=== PATIENT | female | born 1970 | race Caucasian/White ===

== ENCOUNTER 2024-02-25 08:24 | Outpatient (AMB) | payer MEDICAID, SELFPAY ==
--- NOTE | 2024-02-25 08:47 | ORTHONT_ITS ---
Vital signs 02/25/24 08:48 Height 1.7 m Height Method Stated Weight 102.54 kg Weight Measurement Method Standing Scale BMI 35.4 BP 166/96 H Blood Pressure Source Automatic Cuff Blood Pressure Location Right Upper Arm Position Sitting Respiration 18 Pulse 66 Pulse Source Monitor Temp 97.3 F Temp Source Temporal Artery Scan Pulse Oximetry (%) 97 Oxygen Delivery Method Room Air Med/Allergies Allergies & Medications Allergies codeine Allergy (Severe, Verified 02/25/24 08:48) Palpitations hydrocortisone Allergy (Severe, Verified 02/25/24 08:48) Headache prednisone Allergy (Severe, Verified 02/25/24 08:48) Swelling of Lip/Tongue/Throat sulfamethoxazole Allergy (Severe, Verified 02/25/24 08:48) Rash trimethoprim Allergy (Severe, Verified 02/25/24 08:48) Rash Medication Reconciliation baclofen 10 mg tablet 10 mg PO BID 03/20/21 [History Confirmed 02/25/24] cetirizine 10 mg tablet 10 mg PO QDAY 03/20/21 [History Confirmed 02/25/24] lisinopril 40 mg tablet 40 mg PO QDAY 03/20/21 [History Confirmed 02/25/24] omeprazole 40 mg capsule,delayed release 40 mg PO QDAY 03/20/21 [History Confirmed 02/25/24] ondansetron 8 mg disintegrating tablet 8 mg PO Q8H PRN nausea and vomiting #14 tabs 03/20/21 [Rx Confirmed 02/25/24] propranolol 10 mg tablet 10 mg PO QDAY 03/20/21 [History Confirmed 02/25/24] sertraline 25 mg tablet 25 mg PO QDAY 03/20/21 [History Confirmed 02/25/24] trazodone 100 mg tablet 100 mg PO QDAY 03/20/21 [History Confirmed 02/25/24] ibuprofen 800 mg tablet 800 mg PO TID PRN pain #30 tabs 08/03/21 [Rx Confirmed 02/25/24] Subjective Visit Visit for: new patient and hip (BILATERAL) Immunization / Flu Flu Vaccine in the Last 12 Months: No Flu Vaccine Exclusion Criteria: No Exclusion Criteria History of Present Illness Chief complaint: BILATERAL HIP PAIN Aakash is a pleasant 53-year-old female with a history of a right hip replacement done with Dr. Melecio Newman. The incision was on the side of her hip. This occurred approximately 1 year ago. She is having persistent left hip pain recently. The pain is primarily in the groin but is in the back and shoots down her thigh as well. She takes Celebrex as well as gabapentin. 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 Exam Exam Patient is in no acute distress and is cooperative with the examination today. Patient has a normal mood and affect. Breathing is nonlabored. In no respiratory distress. Bilateral extremities were evaluated and demonstrates sensation intact to light touch. Palpable pedal pulses are present. No significant edema is present. Right hip demonstrates no pain with logroll. Incisions clean dry intact. Left hip is tender to palpation. There is pain with logroll as well. Internal rotation to 20 degrees and is pain limited Assessment and Plan Problem List (1) Status post right hip replacement: Status: Acute Plan: Patient is a pleasant 53-year-old female with likely left hip arthritis. I would like to see her back after her x-rays are done. We will likely do a summer gnostic injection of her left hip with cortisone as she has some back pain it would be very helpful to differentiate her back and hip pain. I will see her back for x-ray results (2) Arthritis of left hip: Status: Acute Office Procedures GNS Level of Care Nursing/Assessment Patient Status: Initial/New Patient Nursing Assessment/Reassesment: Medication Reconciliation, Update PMH in EMR and Vital Signs Coordination of Care: Complex Care and Chronic Disease 1-5, Consent,records obtained, informed consent, Education Simp Pt/Fam, 1 Ins Authorization, Lab and Imaging orders, Results/Orders obtained and Staff clarify orders New Patient Charge New Patient Point Assignment: 1119 New Patient Point Charge: HELICOPTER SPECIALIST Level 3 ([id number]) Past Medical History Past Medical History Have you ever been diagnosed with any of the following: Neurological Problems Seizures: No Cardiology Problems Hypercholesterolemia: No Congestive Heart Failure: No Hypertension: Yes Respiratory Problems Chronic Obstructive Pulmonary Disease (COPD): No Asthma: No Smoking: No Smoking Exposure: No Genital/Urinary Problems Renal Disease: No Kidney Stones: Yes Reproductive Problems Breast Cancer: No Previous Pregnancies: Yes Endocrine Problems Diabetes Mellitus Type 1: No Diabetes Mellitus Type 2: No Blood Problems Sickle Cell Disease: No Psychologic Problems Depression: Yes Anxiety: Yes Other Problems Blood Transfusions: No Blood Transfusion Reaction: No Anesthesia Reactions: No Organ Transplant: No Chicken Pox: Yes
[2024-02-25 08:48] VITALS: BP 166/96; PULSE 66; RESP 18; TEMP 36.3; O2SAT 97; BMI 35.4
== END 2024-02-25 09:08 | disposition home or self-care (01) ==
LOC: HODSRG 08:24
PROVIDERS: PCP Family Medicine; Referring Provider Family Medicine; Supervising Provider Orthopaedic Surgery Adult Reconstructive Orthopaedic Surgery; Visit Provider Orthopaedic Surgery Adult Reconstructive Orthopaedic Surgery
DX: Z96.641 Presence of right artificial hip joint (principal); M16.12 Unilateral primary osteoarthritis, left hip; I10 Essential (primary) hypertension
CPT/HCPCS: 99203; G0463

== ENCOUNTER 2024-04-07 08:08 | Outpatient (AMB) | payer MEDICAID, SELFPAY ==
[2024-04-07 08:40] VITALS: BP 142/88; PULSE 99; RESP 18; TEMP 36.6; O2SAT 99; BMI 35.1
--- NOTE | 2024-04-07 08:40 | ORTHONT_ITS ---
Vital signs 04/07/24 08:40 Height 1.7 m Height Method Stated Weight 101.633 kg Weight Measurement Method Standing Scale BMI 35.1 BP 142/88 H Blood Pressure Source Automatic Cuff Blood Pressure Location Left Upper Arm Position Sitting Respiration 18 Pulse 99 Pulse Source Monitor Temp 97.8 F Temp Source Oral Pulse Oximetry (%) 99 Oxygen Delivery Method Room Air Med/Allergies Allergies & Medications Allergies codeine Allergy (Severe, Verified 02/25/24 08:48) Palpitations hydrocortisone Allergy (Severe, Verified 02/25/24 08:48) Headache prednisone Allergy (Severe, Verified 02/25/24 08:48) Swelling of Lip/Tongue/Throat sulfamethoxazole Allergy (Severe, Verified 02/25/24 08:48) Rash trimethoprim Allergy (Severe, Verified 02/25/24 08:48) Rash Subjective Visit Visit for: follow up visit Immunization / Flu Flu Vaccine in the Last 12 Months: No Flu Vaccine Exclusion Criteria: No Exclusion Criteria History of Present Illness Chief complaint: PT HERE IN OFFICE HAS BILATERAL HIP PAIN Aakash is a pleasant 53-year-old female with a history of a right hip replacement done with Dr. Melecio Newman. The incision was on the side of her hip. This occurred approximately 1 year ago. She is having persistent left hip pain recently. The pain is primarily in the groin but is in the back and shoots down her thigh as well. She takes Celebrex as well as gabapentin. 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 Exam Exam Patient is in no acute distress and is cooperative with the examination today. Patient has a normal mood and affect. Breathing is nonlabored. In no respiratory distress. Bilateral extremities were evaluated and demonstrates sensation intact to light touch. Palpable pedal pulses are present. No significant edema is present. Right hip demonstrates no pain with logroll. Incisions clean dry intact. Left hip is tender to palpation. There is pain with logroll as well. Internal rotation to 20 degrees and is pain limited X-rays of the right hip demonstrate a right total hip replacement in a lying position. The left hip has moderate arthritis And joint space narrowing. Assessment and Plan Problem List (1) Status post right hip replacement: Status: Acute Plan: Patient is a pleasant 53-year-old female with Moderate left hip arthritis. She has significant back pain that radiates down her toes as well. We will start with a left hip cortisone injection for both diagnostic and therapeutic purposes. I would like to know how much of this pain is coming from her hip versus her back. We will see her back in approximately 6 weeks after her injection (2) Arthritis of left hip: Status: Acute Office Procedures GNS Level of Care Nursing/Assessment Patient Status: Established Patient Nursing Assessment/Reassesment: BP Monitoring, Medication Reconciliation, Update PMH in EMR and Vital Signs Coordination of Care: Complex Care and Chronic Disease 1-5, Consent,records obtained, informed consent, Lab and Imaging orders and Results/Orders obtained Established Patient Charge Established Patient Point Assignment: 95 Established Patient Point Charge: EP Level 3 (80-115) Past Medical History Past Medical History Have you ever been diagnosed with any of the following: Neurological Problems Seizures: No Cardiology Problems Hypercholesterolemia: No Congestive Heart Failure: No Hypertension: Yes Respiratory Problems Chronic Obstructive Pulmonary Disease (COPD): No Asthma: No Smoking: No Smoking Exposure: No Genital/Urinary Problems Renal Disease: No Kidney Stones: Yes Reproductive Problems Breast Cancer: No Previous Pregnancies: Yes Endocrine Problems Diabetes Mellitus Type 1: No Diabetes Mellitus Type 2: No Blood Problems Sickle Cell Disease: No Psychologic Problems Depression: Yes Anxiety: Yes Other Problems Blood Transfusions: No Blood Transfusion Reaction: No Anesthesia Reactions: No Organ Transplant: No Chicken Pox: Yes
== END 2024-04-07 09:32 | disposition home or self-care (01) ==
LOC: HODSRG 08:08
PROVIDERS: PCP Family Medicine; Referring Provider Family Medicine; Supervising Provider Orthopaedic Surgery Adult Reconstructive Orthopaedic Surgery; Visit Provider Orthopaedic Surgery Adult Reconstructive Orthopaedic Surgery
DX: Z96.641 Presence of right artificial hip joint (principal); M16.12 Unilateral primary osteoarthritis, left hip; I10 Essential (primary) hypertension
CPT/HCPCS: 99213; G0463

== ENCOUNTER → 2024-05-06 | Outpatient (CLI) | payer MEDICAID, SELFPAY ==
--- NOTE | 2024-05-06 14:00 | XR_ITS ---
Examination: Steroid injection left hip joint with imaging guidance Fluoroscopy AP left hip single view INDICATIONS: Left hip pain osteoarthritis one month. Exam date and time: May 06, 2024 1322 hours Informed consent provided. Technique: A timeout was completed verifying correct patient, procedure, site, positioning. The patient was placed in supine position appropriate for the steroid injection The patient's site was prepped and draped in sterile fashion 5 cc 1% lidocaine administered locally for anesthesia. Sterile drape applied, maximum barrier sterile technique. Utilizing fluoroscopic guidance, 23-gauge needle placed in the left hip joint 1 cc Kenalog 40 in 5 cc 0.25% Marcaine introduced into the left hip joint The patient was in satisfactory and stable condition on completion of the procedure Attending radiologist was present for the entire procedure Estimated blood loss 0 cc. Impression: Successful steroid injection left hip joint with imaging guidance Fluoroscopy 0.1 minute radiation dose 2.08 milligray 1 spot fluoroscopic left hip film .
== END | disposition home or self-care (01) ==
LOC: SIRX 13:02
PROVIDERS: PCP Physician Assistant; Referring Provider Orthopaedic Surgery Adult Reconstructive Orthopaedic Surgery; Visit Provider Orthopaedic Surgery Adult Reconstructive Orthopaedic Surgery
DX: M16.12 Unilateral primary osteoarthritis, left hip (principal)
CPT/HCPCS: 20610; 77002

== ENCOUNTER 2024-07-07 08:02 | Outpatient (AMB) | payer MEDICAID, SELFPAY ==
[2024-07-07 08:11] VITALS: BP 140/91; PULSE 68; RESP 19; TEMP 36.3; O2SAT 98; BMI 34.7
--- NOTE | 2024-07-07 08:11 | PD.ORTHCLVIS ---
Vital signs 07/07/24 08:11 Height 1.7 m Height Method Stated Weight 100.272 kg Weight Measurement Method Standing Scale BMI 34.7 BP 140/91 H Blood Pressure Source Automatic Cuff Blood Pressure Location Left Upper Arm Position Sitting Respiration 19 Pulse 68 Pulse Source Monitor Temp 97.3 F Temp Source Temporal Artery Scan Pulse Oximetry (%) 98 Oxygen Delivery Method Room Air Med/Allergies Allergies & Medications Allergies codeine Allergy (Severe, Verified 07/07/24 08:12) Palpitations hydrocortisone Allergy (Severe, Verified 07/07/24 08:12) Headache prednisone Allergy (Severe, Verified 07/07/24 08:12) Swelling of Lip/Tongue/Throat sulfamethoxazole Allergy (Severe, Verified 07/07/24 08:12) Rash trimethoprim Allergy (Severe, Verified 07/07/24 08:12) Rash Medication Reconciliation baclofen 10 mg tablet 10 mg PO BID 03/20/21 [History Confirmed 07/07/24] cetirizine 10 mg tablet 10 mg PO QDAY 03/20/21 [History Confirmed 07/07/24] lisinopril 40 mg tablet 40 mg PO QDAY 03/20/21 [History Confirmed 07/07/24] omeprazole 40 mg capsule,delayed release 40 mg PO QDAY 03/20/21 [History Confirmed 07/07/24] ondansetron 8 mg disintegrating tablet 8 mg PO Q8H PRN nausea and vomiting #14 tabs 03/20/21 [Rx Confirmed 07/07/24] propranolol 10 mg tablet 10 mg PO QDAY 03/20/21 [History Confirmed 07/07/24] sertraline 25 mg tablet 25 mg PO QDAY 03/20/21 [History Confirmed 07/07/24] trazodone 100 mg tablet 100 mg PO QDAY 03/20/21 [History Confirmed 07/07/24] ibuprofen 800 mg tablet 800 mg PO TID PRN pain #30 tabs 08/03/21 [Rx Confirmed 07/07/24] Exam Exam Patient is in no acute distress and is cooperative with the examination today. Patient has a normal mood and affect. Breathing is nonlabored. In no respiratory distress. Bilateral extremities were evaluated and demonstrates sensation intact to light touch. Palpable pedal pulses are present. No significant edema is present. Right hip demonstrates no pain with logroll. Incisions clean dry intact. Left hip is tender to palpation. There is pain with logroll as well. Internal rotation to 20 degrees and is pain limited X-rays of the right hip demonstrate a right total hip replacement in a lying position. The left hip has moderate arthritis And joint space narrowing. Assessment and Plan Problem List (1) Status post right hip replacement: Status: Acute Plan: Patient is a pleasant 53-year-old female with Moderate left hip arthritis. She has significant back pain that radiates down her toes as well. She did receive significant relief with a cortisone injection. The pain has reoccurred. We talked about total hip replacement in great detail today. She is currently on the fence whether she wants a total hip replacement or not. We will continue with NSAIDs for now. She will continue to try to lose weight. (2) Arthritis of left hip: Status: Acute Office Procedures GNS Level of Care Nursing/Assessment Patient Status: Established Patient Nursing Assessment/Reassesment: Medication Reconciliation, Update PMH in EMR and Vital Signs Coordination of Care: Complex Care and Chronic Disease 1-5, Education Complex Pt/Fam, Consent,records obtained, informed consent, Results/Orders obtained and Staff clarify orders Established Patient Charge Established Patient Point Assignment: 95 Established Patient Point Charge: EP Level 3 (80-115) MA Intake Visit Data Collection New Patient or Established: Established Patient (seen at [facility] within 3 years) Reason for Visit:: 3MTH F/U HIP INJ Seen by Clinical Staff ONLY (RN/MA): No 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 Operation 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: No PCP or OBGYN visit in last 3 months: Yes Hx Now: No Do You Feel Safe at Home: Yes Authorities Contacted: N/A Questionairres Past Medical History Past Medical History Have you ever been diagnosed with any of the following: Neurological Problems Seizures: No Cardiology Problems Hypercholesterolemia: No Congestive Heart Failure: No Hypertension: Yes Respiratory Problems Chronic Obstructive Pulmonary Disease (COPD): No Asthma: No Smoking: No Smoking Exposure: No Genital/Urinary Problems Renal Disease: No Kidney Stones: Yes Reproductive Problems Breast Cancer: No Previous Pregnancies: Yes Endocrine Problems Diabetes Mellitus Type 1: No Diabetes Mellitus Type 2: No Blood Problems Sickle Cell Disease: No Psychologic Problems Depression: Yes Anxiety: Yes Other Problems Blood Transfusions: No Blood Transfusion Reaction: No Anesthesia Reactions: No Organ Transplant: No Chicken Pox: Yes Subjective Visit Visit for: follow up visit and hip Immunization / Flu Flu Vaccine in the Last 12 Months: No Flu Vaccine Exclusion Criteria: No Exclusion Criteria History of Present Illness Chief complaint: left hip pain Aakash is a pleasant 53-year-old female with left hip arthritis. She had a right hip replaced. She had a hip injection and reports that it did help for 3 weeks. She is currently on the fence whether she wants a hip replacement at this point. She takes Celebrex. Pain Pain level (0-10): 6 Pain duration: CONSTANT Pain location: inside (medial) and outside (lateral) Pain quality: dull Pain timing: increases with activity Ambulatory data Ambulatory device: none Treatments Improvement with previous injections: No Improvement with PT: No Improvement with NSAIDS: no Review of Systems Review of Systems: All systems negative unless otherwise noted in HPI.
== END 2024-07-07 08:31 | disposition home or self-care (01) ==
LOC: HODSRG 08:02
PROVIDERS: PCP Physician Assistant; Referring Provider Physician Assistant; Supervising Provider Orthopaedic Surgery Adult Reconstructive Orthopaedic Surgery; Visit Provider Orthopaedic Surgery Adult Reconstructive Orthopaedic Surgery
DX: M16.12 Unilateral primary osteoarthritis, left hip (principal); Z96.641 Presence of right artificial hip joint; I10 Essential (primary) hypertension
CPT/HCPCS: 99213; G0463

== ENCOUNTER 2024-09-29 10:54 | Outpatient (AMB) | payer MEDICAID, SELFPAY ==
[2024-09-29 11:16] VITALS: BP 147/83; PULSE 74; RESP 18; TEMP 36.4; O2SAT 95; BMI 32.6
--- NOTE | 2024-09-29 11:16 | ORTHONT_ITS ---
Vital signs 09/29/24 11:16 Height 1.7 m Height Method Stated Weight 94.376 kg Weight Measurement Method Standing Scale BMI 32.6 BP 147/83 H Blood Pressure Source Automatic Cuff Blood Pressure Location Left Upper Arm Position Sitting Respiration 18 Pulse 74 Pulse Source Monitor Temp 97.6 F Temp Source Temporal Artery Scan Pulse Oximetry (%) 95 Oxygen Delivery Method Room Air Med/Allergies Allergies & Medications Allergies codeine Allergy (Severe, Verified 09/29/24 11:17) Palpitations hydrocortisone Allergy (Severe, Verified 09/29/24 11:17) Headache prednisone Allergy (Severe, Verified 09/29/24 11:17) Swelling of Lip/Tongue/Throat sulfamethoxazole Allergy (Severe, Verified 09/29/24 11:17) Rash trimethoprim Allergy (Severe, Verified 09/29/24 11:17) Rash Medication Reconciliation baclofen 10 mg tablet 10 mg PO BID 03/20/21 [History Confirmed 09/29/24] cetirizine 10 mg tablet 10 mg PO QDAY 03/20/21 [History Confirmed 09/29/24] lisinopril 40 mg tablet 40 mg PO QDAY 03/20/21 [History Confirmed 09/29/24] omeprazole 40 mg capsule,delayed release 40 mg PO QDAY 03/20/21 [History Confirmed 09/29/24] ondansetron 8 mg disintegrating tablet 8 mg PO Q8H PRN nausea and vomiting #14 tabs 03/20/21 [Rx Confirmed 09/29/24] propranolol 10 mg tablet 10 mg PO QDAY 03/20/21 [History Confirmed 09/29/24] sertraline 25 mg tablet 25 mg PO QDAY 03/20/21 [History Confirmed 09/29/24] trazodone 100 mg tablet 100 mg PO QDAY 03/20/21 [History Confirmed 09/29/24] ibuprofen 800 mg tablet 800 mg PO TID PRN pain #30 tabs 08/03/21 [Rx Confirmed 09/29/24] Exam Exam Patient is in no acute distress and is cooperative with the examination today. Patient has a normal mood and affect. Breathing is nonlabored. In no respiratory distress. Bilateral extremities were evaluated and demonstrates sensation intact to light touch. Palpable pedal pulses are present. No significant edema is present. Right hip demonstrates no pain with logroll. Incisions clean dry intact. Left hip is tender to palpation. There is pain with logroll as well. Internal rotation to 20 degrees and is pain limited X-rays of the right hip demonstrate a right total hip replacement in a lying position. The left hip has moderate arthritis And joint space narrowing. Assessment and Plan Problem List (1) Status post right hip replacement: Status: Acute Plan: Patient is a pleasant 53-year-old female with Moderate left hip arthritis. She has significant back pain that radiates down her toes as well. She did receive significant relief with a cortisone injection. The pain has reoccurred. We talked about total hip replacement in great detail today. She is currently on the fence whether she wants a total hip replacement or not. We will continue with NSAIDs for now. She will continue to try to lose weight. (2) Arthritis of left hip: Status: Acute Office Procedures GNS Level of Care Nursing/Assessment Patient Status: Established Patient Nursing Assessment/Reassesment: Medication Reconciliation, Update PMH in EMR and Vital Signs Coordination of Care: Complex Care and Chronic Disease 1-5, Education Complex Pt/Fam, Consent,records obtained, informed consent, Results/Orders obtained and Staff clarify orders Established Patient Charge Established Patient Point Assignment: 95 MA Intake Visit Data Collection New Patient or Established: Established Patient (seen at [facility] within 3 years) Reason for Visit:: LEFT HIP PAIN FOLLOW UP Seen by Clinical Staff ONLY (RN/MA): No PCP or OBGYN visit in last 3 months: Yes Hx Now: No Do You Feel Safe at Home: Yes Authorities Contacted: N/A Questionairres Past Medical History Past Medical History Have you ever been diagnosed with any of the following: Neurological Problems Seizures: No Cardiology Problems Hypercholesterolemia: No Congestive Heart Failure: No Hypertension: Yes Respiratory Problems Chronic Obstructive Pulmonary Disease (COPD): No Asthma: No Smoking: No Smoking Exposure: No Genital/Urinary Problems Renal Disease: No Kidney Stones: Yes Reproductive Problems Breast Cancer: No Previous Pregnancies: Yes Endocrine Problems Diabetes Mellitus Type 1: No Diabetes Mellitus Type 2: No Blood Problems Sickle Cell Disease: No Psychologic Problems Depression: Yes Anxiety: Yes Other Problems Blood Transfusions: No Blood Transfusion Reaction: No Anesthesia Reactions: No Organ Transplant: No Chicken Pox: Yes Subjective Visit Visit for: follow up visit and hip Immunization / Flu Flu Vaccine in the Last 12 Months: No Flu Vaccine Exclusion Criteria: No Exclusion Criteria History of Present Illness Chief complaint: left hip pain Aakash is a pleasant 53-year-old female with left hip arthritis. She had a right hip replaced. She had a hip injection and reports that it did help for 3 weeks. She is currently on the fence whether she wants a hip replacement at this point. She takes Celebrex. The last hip injection did not last for a long period of time. Pain Pain level (0-10): 5 Pain duration: COMES AND GOES Pain location: outside (lateral) Pain quality: dull and aching Pain timing: increases with activity Associated signs & symptoms: none Ambulatory data Ambulatory device: none Treatments Improvement with previous injections: No Improvement with PT: No Improvement with NSAIDS: no Review of Systems Review of Systems: All systems negative unless otherwise noted in HPI.
== END 2024-09-29 11:25 | disposition home or self-care (01) ==
LOC: HODSRG 10:54
PROVIDERS: PCP Physician Assistant; Referring Provider Physician Assistant; Supervising Provider Orthopaedic Surgery Adult Reconstructive Orthopaedic Surgery; Visit Provider Orthopaedic Surgery Adult Reconstructive Orthopaedic Surgery
DX: Z96.641 Presence of right artificial hip joint (principal); M16.12 Unilateral primary osteoarthritis, left hip; M54.9 Dorsalgia, unspecified
CPT/HCPCS: 99213; G0463

== ENCOUNTER 2024-10-27 18:31 | Inpatient (IN) | payer MEDICAID, SELFPAY ==
[2024-10-27 18:32] VITALS: BMI 32.2
--- NOTE | 2024-10-27 18:36 | EKG_ITS ---
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
[2024-10-27 18:52] VITALS: BP 125/82; PULSE 138; RESP 18; TEMP 36.9; O2SAT 99
--- NOTE | 2024-10-27 19:00 | XR_ITS ---
Examination: AP chest single view TECHNIQUE: Portable AP sitting chest single view Date and time: October 27, 2024 1906 hours Comparison July 18, 2018 INDICATIONS: Tachycardia today. FINDINGS: Normal heart size. Lungs are clear. The osseous structures are intact. IMPRESSION: No active disease
[2024-10-27] MEDS: SODIUM CHLORIDE 0.9% 1000 ML 1,000 ML 999 ML IV (19:09)
[2024-10-27 19:10] VITALS: PULSE 146
--- NOTE | 2024-10-27 19:20 | PD.EDARRY ---
ED Arrhythmia Palp. RME/HPI General Chief Complaint: Arrhythmia/Palpitations Stated Complaint: PULSE HIGH ALL DAY (156) Time Seen by Provider: 10/27/24 18:59 Source: patient Arrival date/time: 10/27/24 18:31 Mode of arrival: EMS Limitations: no limitations RME / HPI RME / HPI narrative: 54-year-old female with past medical history of hypertension, stopped taking meds 3 months ago after quitting smoking who presented to the ED due to palpitations and shortness of breath. Patient checked her heart rate in the morning and found it to be very elevated but ignored it and went to work until 5:30 PM checked it again and found it to be elevated in the 140s 150s decided to come to the ER. No fevers, abdominal pain, syncope, seizure, diarrhea, nausea or vomiting, chest pain, recent travel, no longer smoker, no family history of pulmonary embolism MD complaint: rapid heart beat and palpitations Related Data Home Medications ?Medication ?Instructions ?Recorded ?Confirmed baclofen 10 mg tablet 10 mg PO BID 03/20/21 09/29/24 cetirizine 10 mg tablet 10 mg PO QDAY 03/20/21 09/29/24 lisinopril 40 mg tablet 40 mg PO QDAY 03/20/21 09/29/24 omeprazole 40 mg capsule,delayed 40 mg PO QDAY 03/20/21 09/29/24 release propranolol 10 mg tablet 10 mg PO QDAY 03/20/21 09/29/24 sertraline 25 mg tablet 25 mg PO QDAY 03/20/21 09/29/24 trazodone 100 mg tablet 100 mg PO QDAY 03/20/21 09/29/24 Previous Rx's ?Medication ?Instructions ?Recorded ondansetron 8 mg disintegrating 8 mg PO Q8H PRN nausea and 03/20/21 tablet vomiting #14 tabs ibuprofen 800 mg tablet 800 mg PO TID PRN pain #30 tabs 08/03/21 Allergies Allergy/AdvReac Type Severity Reaction Status Date / Time codeine Allergy Severe Palpitation Verified 10/27/24 18:34 s hydrocortisone Allergy Severe Headache Verified 10/27/24 18:34 prednisone Allergy Severe Swelling Verified 10/27/24 18:34 of Lip/Tongue/Throat sulfamethoxazole Allergy Severe Rash Verified 10/27/24 18:34 trimethoprim Allergy Severe Rash Verified 10/27/24 18:34 Review of Systems Review of Systems Systems Reviewed: All systems reviewed, normal except as documented Past Medical History Past Medical History NEUROLOGIC: Negative Neurological Disorders or Seizures CARDIAC: Positive Hypertension; Negative Cardiac Disorders, Hypercholesterolemia or Congestive Heart Failure RESPIRATORY: Negative Chronic Obstructive Pulmonary Disease (COPD), Asthma, Smoking or Smoking Exposure GASTROINTESTINAL: Negative Gastrointestinal Disorders GENITOURINARY: Positive Genitourinary Disorders and Kidney Stones; Negative Renal Disease REPRODUCTIVE: Positive Previous Pregnancies; Negative Breast Cancer MUSCULOSKELETAL: Negative Musculoskeletal Disorders ENDOCRINE: Negative Endocrine Disorders, Diabetes Mellitus Type 1 or Diabetes Mellitus Type 2 HEMATOLOGIC: Negative Blood Disorders or Sickle Cell Disease PSYCHO/SOCIAL: Positive Depression and Anxiety OTHER HISTORY: Positive Chicken Pox; Negative Autoimmune Disease, Blood Transfusions, Blood Transfusion Reaction, Anesthesia Reactions, Organ Transplant or Breast Cancer Family History FAMILY HISTORY: Positive Family Cardiac Disorders, Family Cancer and Family Surgery; Negative Family Anesthesia Reaction Surgical History SURGICAL: Negative Endocrine Surgery, Ear Surgery, Abdominal Surgery, Nephrectomy, Joint Replacement, Neurologic Surgery, Brain Shunt, Mastectomy or Organ Transplant Social History SMOKING STATUS: Never smoker ED Exam Narrative Physical exam: GENERAL: NAD, AAOx3 HEENT: Moist mucosa. Eyes open, symmetrical, & clear CARDIO: Tachycardia, heart irregularly irregular, no obvious murmurs PULM: No noted coughing/dyspnea CTA B/L, no R/W/R GI: Abdomen soft, nondistended, no pain on palpation. BSx4 SKIN/MSK/EXT: No wounds/rashes/edema/amputations, no pain on palpation. Pedal pulses present B/L NEURO: AAOx3, no focal neuro deficits, able to move all 4 extremities General Limitations: Present no limitations Course Course Course Narrative: 1848 EKG taken, shows atrial flutter 1900 1L NS bolus administered 1950 Diltiazem 15mg IVx1 2008 On re-evaluation patients heart rate improved from the 140s to 75bpm 2047 Patient continues to be in atrial flutter, Spoke to Dry Cle[employer] Supervisor Dr. Gonsalez, who evaluated the patient in the emergency department at the bedside ,who recommends Diltiazem drip and admission. 2100 Spoke to IM team will admit the patient. Quality Measures none Orders Category Date Time Status EKG (ED ONLY) *Do not use* NOW Care 10/27/24 18:36 Completed CXRP [XR chest 1V portable] Stat Exams 10/27/24 19:00 Taken EKG (ED Only) Stat Exams 10/27/24 18:36 Draft CBC Stat Lab 10/27/24 19:01 Ordered CMP [Comprehensive Metabolic Panel] Stat Lab 10/27/24 19:01 Ordered Drug Screen,Urine Stat Lab 10/27/24 19:01 Ordered HCG,Qualitative Serum Stat Lab 10/27/24 19:01 Ordered Mag [Magnesium] Stat Lab 10/27/24 19:01 Ordered Urinalysis Stat Lab 10/27/24 19:02 Ordered Diltiazem Inj [Cardizem Inj] Med 10/27/24 19:15 Once 15 mg IV X1 ONE Sodium Chloride 0.9% 1000 ml [Ns] 1,000 ml Med 10/27/24 19:01 Active IV 999 mls/hr Sodium Chloride 0.9% 1000 ml [Ns] 1,000 ml Med 10/27/24 19:06 Active IV 999 mls/hr Reevaluation(s) Reevaluation #1: Please see ED course heart rate improved Vital Signs Vital signs: Vital Signs Temperature 98.5 F 10/27/24 18:52 Pulse Rate 138 H 10/27/24 18:52 Respiratory Rate 18 10/27/24 18:52 Blood Pressure 125/82 10/27/24 18:52 Pulse Oximetry (%) 99 10/27/24 18:52 Oxygen Delivery Method Room Air 10/27/24 18:52 Arrhythmia/Palpitations MDM Narrative MDM Narrative:: 54-year-old female with past medical history of hypertension, stopped taking meds after quitting smoking who presented to the ED due to palpitations and shortness of breath. Patient checked her heart rate in the morning and found it to be very elevated but ignored it and went to work until 5:30 PM checked it again and found it to be elevated in the 140s 150s decided to come to the ER. Patient had EKG done which showed atrial flutter without ST elevations or ischemia, CBC unremarkable, was given 1 L bolus of IV fluids and 1 push of diltiazem 15 mg IV. 1848 EKG taken, shows atrial flutter 1900 1L NS bolus administered 1950 diltiazem 15mg IVx1 2008 On re-evaluation patients heart rate improved from the 140s to 75bpm 2047 Patient continues to be in atrial flutter, Spoke to Dry Cle[employer] Supervisor Dr. Gonsalez who recommends Diltiazem drip and admission. At this time the patient does not have any infectious symptoms and she is afebrile here in emergency department with a white count doubt meningitis and other occult bacteremia. Patient has mild shortness of breath but this may be from her palpitations. She is a non-smoker, has no lower extremity swelling and doubt pulmonary embolism 2100 Spoke to IM team will admit the patient. Patient data External records reviewed:: [facility] previous records Clinical information provided by:: patient Social determinants that could affect healthcare access:: none Patient has the following chronic illnesses:: Hypertension How is presenting disease/condition affected by chronic disease/condition?: no chronic disease Evaluation data The following diagnostics were reviewed and interpreted by me:: lab results and EKG tracing(s) Lab and/or radiology exams considered but not ordered:: CTA chest, low suspicion for PE at this time Interpretation Summary: EKG atrial flutter RVR, QTc 497 Medications / Prescriptions Medications or Prescriptions considered but not ordered:: amiodarone, not ordered due to patients age, Diltiazem ordered instead. Medication administrations:: Medication Administration History Diltiazem HCl (Diltiazem Inj 5 Mg/Ml Vial 5 Ml) 15 mg IV X1 ONE Stop: 10/27/24 19:16 Sodium Chloride (Ns) 1,000 mls @ 999 mls/hr IV .Q1H1M ONE Stop: 10/27/24 20:01 Last Admin: 10/27/24 19:09 Dose: 999 mls/hr Documented By: Sodium Chloride (Ns) 1,000 mls @ 999 mls/hr IV .Q1H1M ONE Stop: 10/27/24 20:06 Last Admin: 10/27/24 19:09 Dose: Not Given Documented By: Non-Admin Reason: Duplicate Medication on eMAR Consultations Consultation(s) initiated? (list below): Yes Consultation #1 (Physician, Specialty, Details): Spoke to Dry Cle[employer] Supervisor Dr. Gonsalez who recommends Diltiazem drip, echo and admission Time: 20:48 Diagnosis Differential diagnosis arrhythmia/palpitations: palpitations, sinus tachycardia, artial fibrillation and artial flutter Most likely diagnosis given after review of the tests above:: atrial flutter with RVR Admission Indicated Admission indicated?: indicated Admission Request Was there a request for admission?: Yes Admission Attestation Admission request attestation: Discussed case with [] from Hospitalist service regarding admission. Discussed patients ED course, exam findings, labs, and radiology results. The Hospitalist [agrees,declines] to accept the patient for admission. Disposition Plan Disposition Plan: Admit Discharge Plan Problem List Clinical Impression: Atrial flutter MD Attestation MD Attestation I did a history and physical exam, reviewed the history and physical exam with the resident, discussed the management and was actively involved in the care of this patient with the resident. I reviewed his note and agree.
[2024-10-27 19:26] LABS: Basophils # (Auto) 0.0 Thou/mm3 (0.0-0.2); Basophils % (Auto) 0 % (0-2.5); Eosinophils # (Auto) 0.2 Thou/mm3 (0.0-0.5); Eosinophils % (Auto) 2 % (0-10); Hematocrit 39.6 % (36.0-46.0); Hemoglobin 13.1 g/dL (12.0-16.0); Immature Granulocytes Auto 0.02 Thou/mm3 (0.00-0.00); Lymphocytes # (Auto) 3.0 Thou/mm3 (1.0-4.8); Lymphocytes % (Auto) 31 % (10-50); Mean Corpuscular HGB Conc 33.1 g/dl (31.0-37.0); Mean Corpuscular Hemoglobin 28.2 pg (25.0-35.0); Mean Corpuscular Volume 85 fL (80-100); Monocytes # (Auto) 0.8 Thou/mm3 (0.0-0.8); Monocytes % (Auto) 8 % (0-12); Neutrophils # (Auto) 5.5 Thou/mm3 (1.8-7.7); Neutrophils % (Auto) 58 % (37-80); Nucleated Red Blood Cell # 0.00 Thou/mm3 (0.00-0.00); Nucleated Red Blood Cell % 0 /100 WBC (0); Platelet Count 254 Thou/mm3 (140-440); RDW Standard Deviation 45.0 fL (36.4-46.3); Red Blood Count 4.64 Miln/mm3 (4.00-5.20); White Blood Count 9.4 Thou/mm3 (3.6-11.0)
[2024-10-27 19:38] LABS: HCG,Qualitative Serum Negative
[2024-10-27 19:45] VITALS: BP 149/83; PULSE 133; RESP 17; TEMP 36.4; O2SAT 97
[2024-10-27 19:47] LABS: Alanine Aminotransferase 15 U/L (10-49); Albumin, Serum 4.8 gm/dL (3.5-5.0); Albumin/Globulin Ratio 1.9 (1.2-2.2); Alkaline Phosphatase 92 U/L (46-116); Anion Gap 9 (7-16); Aspartate Amino Transferase 20 U/L (0-34); BUN/Creatinine Ratio 17 Ratio (12-20); Bilirubin,Total 0.3 mg/dL (0.3-1.2); Blood Urea Nitrogen 19 mg/dL (9-23); Calcium 10.1 mg/dL (8.3-10.6); Calcium (Corrected) 10.1 mg/dL (8.5-10.1); Carbon Dioxide 26.4 mMol/L (20.0-31.0); Chloride 106 mMol/L (98-107); Creatinine (Component) 1.1 mg/dL (0.6-1.3); Estimated Creatinine Clearance 70.2 mL/min (>60); Globulin 2.5 gm/dL (2.3-3.5); Glucose 91 mg/dL (74-106); Magnesium 2.0 mg/dL (1.6-2.6); Osmolality,Calculated 283 (275-295); Potassium 4.3 mMol/L (3.4-5.1); Sodium 141 mMol/L (136-145); Total Protein 7.3 gm/dL (5.7-8.2); eGFR > 60 See Note
[2024-10-27 19:50] VITALS: BP 149/83; PULSE 112
[2024-10-27] MEDS: DILTIAZEM INJ 5 MG/ML VIAL 5 ML 15 MG IV (19:50)
[2024-10-27 19:53] VITALS: PULSE 75
[2024-10-27 20:20] LABS: Collection Type, Urine Voided
[2024-10-27 21:07] LABS: Bacteria,Urine Rare; Bilirubin,Urine Negative (Negative); Blood,Urine Negative (Negative); Clarity,Urine Clear (Clear/Hazy); Color,Urine Colorless (Lt Yel-Yel); Glucose, Urine Negative (Negative); Ketones,Urine Negative (Negative); Leukocyte Esterase,Urine Positive (Negative); Nitrite,Urine Negative (Negative); PH,Urine 6.5 (5.0-7.0); Protein,Urine Negative (Neg - Trace); RBC,Urine 2 /hpf (0-3); Specific Gravity,Urine 1.008 (1.001-1.035); Squamous Epithelial Cell,Urine 1 /hpf (0-5); Urobilinogen,Urine Negative mg/dL (0.0-1.0); WBC,Urine 11 /hpf (0-5)
[2024-10-27 21:23] LABS: Amphetamine/Methamp Scrn,U Negative (Negative); Barbiturate Screen,Urine Negative (Negative); Benzodiazepines Screen,Urine Negative (Negative); Benzoylecgonine Screen, Ur Negative (Negative); Fentanyl Screen,Urine Negative (Negative); Opiate Screen,Urine Positive (Negative); THC Screen,Urine Negative (Negative)
--- NOTE | 2024-10-27 21:32 | PD.RESHP ---
Documentation for date of: 10/27/24 HPI History of Present Illness Chief complaint: Palpitations, shortness of breath History of present illness: 54-year-old female with history of right hip replacement, chronic back pain and neuropathy presented to the ED with episode of shortness of breath and palpitations which occurred on 10/27. Patient states that she was going to work when she started experiencing palpitations and rapid heart rate with associated shortness of breath. Patient denies having any similar episodes in the past and denies having any concerning cardiac episodes. Patient denies having any orthopnea, paroxysmal nocturnal dyspnea, but does state that she does get lower extremity swelling which doctors have attributed in the past to her hip replacement. Patient's father did require stents when he was 60 and recently had a triple bypass but otherwise no significant family history noted. Patient denies any recent infections, fever/chills or any recent travels. 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 ROS: All 12 systems assessed and the patient denies unless otherwise stated in HPI. In the ED, patient presented normotensive, tachycardic with a heart rate of 138, respiratory rate 18, afebrile satting 99 on room air. Lab findings were largely unremarkable, troponin within normal limits. Urinalysis was negative for any signs of infection. U tox is positive for opiates. EKG did show atrial flutter with rapid ventricular response and there was noted ST minor less than 1 mm elevation in inferior leads without any reciprocal changes. Cardiology was consulted and followed the patient closely and recommended starting the patient on IV diltiazem drip. Patient will be admitted for newly diagnosed atrial flutter/A-fib with RVR on diltiazem drip, cardiology consulted for recommendations and management. Exam Vital Signs Temp Pulse Resp BP Pulse Ox O2 Del Method 97.5 F 75 17 149/83 H 97 Room Air 10/27/24 19:45 10/27/24 19:53 10/27/24 19:45 10/27/24 19:50 10/27/24 19:45 10/27/24 19:45 Narrative Exam Physical Exam: GENERAL: Awake, answering questions appropriately, appears stated age HEENT: NC/AT. Moist mucosa. PERRLA/EOMI. CARDIO: Irregularly irregular and tachycardic, no obvious murmurs, no JVD. PULM: No coughing or visible SOB. Lungs CTA B/L. GI: Abdomen soft, NT/ND, +BS. SKIN/MSK/EXT: No wounds/discoloration/rashes/edema/amputations noted. +Pedal pulses present B/L. NEURO: Oriented x3, Moves extremities x4, no focal neurologic deficits noted Results: Labs 10/27/24 19:10 10/27/24 19:10 Labs: Short CBC 10/27/24 Range/Units 19:10 WBC 9.4 (3.6-11.0) Thou/mm3 Hgb 13.1 (12.0-16.0) g/dL Hct 39.6 (36.0-46.0) % Plt Count 254 (140-440) Thou/mm3 BMP 10/27/24 19:10 Sodium 141 Potassium 4.3 Chloride 106 Carbon Dioxide 26.4 BUN 19 Creatinine 1.1 Glucose 91 Calcium 10.1 Liver Function 10/27/24 Range/Units 19:10 Total Bilirubin 0.3 (0.3-1.2) mg/dL AST 20 (0-34) U/L ALT 15 (10-49) U/L Alkaline Phosphatase 92 (46-116) U/L Albumin 4.8 (3.5-5.0) gm/dL Urine 10/27/24 Range/Units 19:40 Urine Color Colorless A (Lt Yel-Yel) Urine Clarity Clear (Clear/Hazy) Urine pH 6.5 (5.0-7.0) Ur Specific [place] 1.008 (1.001-1.035) Urine Protein Negative (Neg - Trace) Urine Glucose (UA) Negative (Negative) Quality Measures Quality Measures VTE prophylaxis Medications Home Medications and Allergies Home Medications ?Medication ?Instructions ?Recorded ?Confirmed ?Type baclofen 10 mg tablet 10 mg PO BID 03/20/21 09/29/24 History cetirizine 10 mg tablet 10 mg PO QDAY 03/20/21 09/29/24 History lisinopril 40 mg tablet 40 mg PO QDAY 03/20/21 09/29/24 History omeprazole 40 mg capsule,delayed 40 mg PO QDAY 03/20/21 09/29/24 History release propranolol 10 mg tablet 10 mg PO QDAY 03/20/21 09/29/24 History sertraline 25 mg tablet 25 mg PO QDAY 03/20/21 09/29/24 History trazodone 100 mg tablet 100 mg PO QDAY 03/20/21 09/29/24 History Allergies Allergy/AdvReac Type Severity Reaction Status Date / Time codeine Allergy Severe Palpitation Verified 10/27/24 18:34 s hydrocortisone Allergy Severe Headache Verified 10/27/24 18:34 prednisone Allergy Severe Swelling Verified 10/27/24 18:34 of Lip/Tongue/Throat sulfamethoxazole Allergy Severe Rash Verified 10/27/24 18:34 trimethoprim Allergy Severe Rash Verified 10/27/24 18:34 Visit Medications Acetaminophen (Acetaminophen 325 Mg Tablet) 650 mg PO Q6H PRN PRN Reason: Pain 1-3 and/or Fever >100.1 Stop: 11/26/24 21:13 Heparin Sodium (Porcine) (Heparin Sod Inj 5000 Unit/Ml Vial) 5,000 unit SC Q12HR ETHAN Stop: 11/11/24 08:59 Diltiazem HCl (Diltiazem In D5w 125 Mg) 125 mg in 125 mls @ 5 mls/hr IV .Q24H ETHAN Stop: 11/26/24 20:48 Ondansetron HCl (Ondansetron Inj 2 Mg/Ml Inj 2 Ml) 4 mg IVP Q6H PRN; Protocol PRN Reason: NAUSEA OR VOMITING Stop: 11/26/24 21:13 Sennosides (Senna Tablet) 1 tab PO QDAY PRN; Protocol PRN Reason: constipation Stop: 11/26/24 21:13 Discontinued Medications Diltiazem HCl (Diltiazem Inj 5 Mg/Ml Vial 5 Ml) 15 mg IV X1 ONE Stop: 10/27/24 19:16 Last Admin: 10/27/24 19:50 Dose: 15 mg Sodium Chloride (Ns) 1,000 mls @ 999 mls/hr IV .Q1H1M ONE Stop: 10/27/24 20:01 Last Admin: 10/27/24 19:09 Dose: 999 mls/hr Sodium Chloride (Ns) 1,000 mls @ 999 mls/hr IV .Q1H1M ONE Stop: 10/27/24 20:06 Last Admin: 10/27/24 19:09 Dose: Not Given Assessment & Plan Plan 54-year-old female with history of right hip replacement, chronic back pain and neuropathy presented to the ED with episode of shortness of breath and palpitations will be admitted for newly diagnosed atrial flutter/A-fib with RVR on diltiazem drip, cardiology consulted for recommendations and management. #A flutter with RVR Patient presenting with singular episode of palpitations associate with shortness of breath, denies having any cardiac history in the past Differentials for new onset atrial fibrillation include possible cardiac abnormality, valvular abnormality, obesity, possible thyroid dysfunction Patient does have family history of cardiac disease with father with coronary artery disease with stents and CABG On examination, patient is tachycardic with irregularly irregular rhythm but denies feeling short of breath at this time Heart rate fluctuates from low of 98 to a high of 140 EKG did show atrial flutter with rapid ventricular response and there was noted ST minor less than 1 mm elevation in inferior leads without any reciprocal changes. Troponin within normal limits and the patient denies having any chest pain In the ED patient presented tachycardic with EKG confirming a flutter with rapid ventricular response Cardiology was consulted and examined the patient and recommendation was to start patient on IV diltiazem Plan: Continue patient on IV diltiazem Echo ordered Cardiology consulted, appreciate recommendations #Right hip replacement #Chronic back pain #Neuropathy Chronic medical conditions, not pertinent to the following presentation Plan: Restart home medications upon med rec Health Maintenance: Lines: PIV Diet: Cardiac Bowel: Senna as needed GI prophylaxis: Not needed DVT prophylaxis: Heparin subcu Dispo: Pending cardiology recommendations, on IV diltiazem for a flutter Code: Full Patient seen and assessed with attending Dr. Barney Montano, DO PGY-2 Internal Medicine - [facility] Attending Provider Attestation/Addendum Patient was seen in the ED complaining of palpitations. She was found to be in atrial flutter. She denies fever she has no shortness of breath no chest pain. She has pounding heartbeat. No alcohol use no drug use. She has no previous history of heart disease. The patient has no known chronic lung problems. Discussed with housestaff. The patient was seen by elevated motorman started on diltiazem drip. Her blood pressure is stable.
[2024-10-27] MEDS: DILTIAZEM in D5W 125 MG 125 MG/125 ML BAG IV (21:47)
[2024-10-27 21:50] VITALS: BMI 32.2
[2024-10-27 22:01] VITALS: BP 158/92; PULSE 95; RESP 15; TEMP 36.7; O2SAT 97
--- NOTE | 2024-10-27 22:16 | PD.RESCONSUL ---
HPI Data of Consult Consult date: 10/27/24 Requesting Physician: Klever Rendon DO Admitting Provider: Félix Corley MD Attending Provider: Klever Rendon DO Primary Care Provider: Michelle Mandel PA-C Consult Narrative History of present illness: The patient is a 54-year-old female with significant past medical history of chronic back pain, peripheral neuropathy, and right hip replacement presented to ED with chief complaint of SOB and palpitation that started this morning. The patient was going to work when she started experiencing palpitation and rapid heart rate associated with SOB. This was unusual for her, and thought of getting medical attention and presented to ED. She denied any headache, dizziness, chest pain, orthopnea/PND, leg swelling, fever or chills, nausea or vomiting, or insomnia. PMH: As mentioned above Surgical history: Right hip replacement Medications: Celecoxib, gabapentin, omeprazole, Zepbound. Allergies: Codeine gives palpitation, hydrocortisone gives headache, sulfamethoxazole/trimethoprim gives a rash. 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 In the ED she was normotensive, heart rate in 140s, with RR 18 and saturating 99% on room air. Labs were fairly stable within normal limits. U tox was positive for opiates, UA negative, EKG revealed no significant ST segment or T wave changes. Cardiology consultation was done for further management of atrial flutter with RVR, and was recommended to start on diltiazem drip. cc:: cc: Klever Rendon DO Review of Systems Review of Systems Systems Reviewed: All systems reviewed, normal except as documented (Above) Exam Vital Signs Temp Pulse Resp BP Pulse Ox O2 Del Method 97.6 F 89 20 156/69 H 99 Room Air 10/28/24 16:00 10/28/24 17:45 10/28/24 16:00 10/28/24 17:45 10/28/24 16:00 10/28/24 16:00 Narrative Exam General: No acute distress, Alert and Oriented x 3 HEENT: Moist mucous membranes, oropharynx clear Neck: Supple, No masses, No JVD CVS: Tachycardia appreciated, No murmurs, rubs or gallops Lungs: Clear to auscultation with no accessory use, no wheeze no rhonchi Abd: Soft, NT/ND, +BS, no organomegaly Ext: No edema, warm and well perfused Skin: No rash Psych: Appropriate mood and affect Results Labs 10/29/24 05:25 10/29/24 05:25 Labs: Short CBC 10/27/24 10/28/24 Range/Units 19:10 04:36 WBC 9.4 10.1 (3.6-11.0) Thou/mm3 Hgb 13.1 12.8 (12.0-16.0) g/dL Hct 39.6 39.5 (36.0-46.0) % Plt Count 254 242 (140-440) Thou/mm3 BMP 10/27/24 10/28/24 19:10 04:36 Sodium 141 144 Potassium 4.3 3.9 Chloride 106 111 H Carbon Dioxide 26.4 25.6 BUN 19 14 Creatinine 1.1 1.1 Glucose 91 92 Calcium 10.1 9.3 Liver Function 10/27/24 10/28/24 Range/Units 19:10 04:36 Total Bilirubin 0.3 0.5 (0.3-1.2) mg/dL AST 20 18 (0-34) U/L ALT 15 13 (10-49) U/L Alkaline Phosphatase 92 89 (46-116) U/L Albumin 4.8 4.2 D (3.5-5.0) gm/dL Urine 10/27/24 Range/Units 19:40 Urine Color Colorless A (Lt Yel-Yel) Urine Clarity Clear (Clear/Hazy) Urine pH 6.5 (5.0-7.0) Ur Specific [place] 1.008 (1.001-1.035) Urine Protein Negative (Neg - Trace) Urine Glucose (UA) Negative (Negative) Quality Measures Quality Measures none Medications Home Medications and Allergies Home Medications ?Medication ?Instructions ?Recorded ?Confirmed ?Type omeprazole 40 mg capsule,delayed 40 mg PO QDAY 03/20/21 10/28/24 History release celecoxib 200 mg capsule 200 mg PO Q12H 10/28/24 10/28/24 History gabapentin 100 mg capsule 100 mg PO Q12H 10/28/24 10/28/24 History tirzepatide (weight loss) 2.5 2.5 mg subcut .COMPLEX 10/28/24 10/28/24 History mg/0.5 mL subcutaneous pen injector (Zepbound) Allergies Allergy/AdvReac Type Severity Reaction Status Date / Time codeine Allergy Severe Palpitation Verified 10/27/24 18:34 s hydrocortisone Allergy Severe Headache Verified 10/27/24 18:34 prednisone Allergy Severe Swelling Verified 10/27/24 18:34 of Lip/Tongue/Throat sulfamethoxazole Allergy Severe Rash Verified 10/27/24 18:34 trimethoprim Allergy Severe Rash Verified 10/27/24 18:34 Visit Medications Acetaminophen (Acetaminophen 325 Mg Tablet) 650 mg PO Q6H PRN PRN Reason: Pain 1-3 and/or Fever >100.1 Stop: 11/26/24 21:13 Gabapentin (Gabapentin 100 Mg Capsule) 100 mg PO BID [facility] Stop: 11/27/24 20:59 Heparin Sodium (Porcine) (Heparin Sod Inj 5000 Unit/Ml Vial) 5,000 unit SC Q12HR ETHAN Stop: 11/11/24 08:59 Last Admin: 10/28/24 08:10 Dose: 5,000 unit Diltiazem HCl (Diltiazem In D5w 125 Mg) 125 mg in 125 mls @ 10 mls/hr IV .[id number] ETHAN Stop: 11/27/24 03:13 Last Admin: 10/28/24 13:14 Dose: 10 mg/hr, 10 mls/hr Ondansetron HCl (Ondansetron Inj 2 Mg/Ml Inj 2 Ml) 4 mg IVP Q6H PRN; Protocol PRN Reason: NAUSEA OR VOMITING Stop: 11/26/24 21:13 Sennosides (Senna Tablet) 1 tab PO QDAY PRN; Protocol PRN Reason: constipation Stop: 11/26/24 21:13 Discontinued Medications Benzocaine (Benzocaine 20% (Hurricaine) [place] 1 Dose) 0 dose TOP X1 ONE Stop: 10/28/24 16:32 Last Admin: 10/28/24 16:57 Dose: 1 dose Diltiazem HCl (Diltiazem Inj 5 Mg/Ml Vial 5 Ml) 15 mg IV X1 ONE Stop: 10/27/24 19:16 Last Admin: 10/27/24 19:50 Dose: 15 mg Fentanyl Citrate (Fentanyl Cit Inj 50 Mcg/Ml Amp 2ml) 200 mcg IVP X1 ONE Stop: 10/28/24 16:32 Last Admin: 10/28/24 16:57 Dose: 125 mcg Hydroxyzine HCl (Hydroxyzine Hcl 25 Mg Tablet) 25 mg PO X1 ONE Stop: 10/28/24 14:18 Last Admin: 10/28/24 14:27 Dose: Not Given Sodium Chloride (Ns) 1,000 mls @ 999 mls/hr IV .Q1H1M ONE Stop: 10/27/24 20:01 Last Infusion: 10/27/24 21:42 Dose: Infused Sodium Chloride (Ns) 1,000 mls @ 999 mls/hr IV .Q1H1M ONE Stop: 10/27/24 20:06 Last Admin: 10/27/24 19:09 Dose: Not Given Diltiazem HCl (Diltiazem In D5w 125 Mg) 125 mg in 125 mls @ 5 mls/hr IV .Q24H ETHAN Stop: 11/26/24 20:48 Last Infusion: 10/28/24 03:48 Dose: 0 mg/hr, 0 mls/hr Magnesium Sulfate (Magnesium Sulfate Ivpb) 2 gm in 50 mls @ 25 mls/hr IV X1 ONE Stop: 10/28/24 09:00 Last Admin: 10/28/24 08:42 Dose: Not Given Magnesium Sulfate (Magnesium Sulfate Ivpb) 2 gm in 50 mls @ 25 mls/hr IV X1 ONE Stop: 10/28/24 09:59 Last Admin: 10/28/24 08:42 Dose: Not Given Magnesium Sulfate (Magnesium Sulfate Ivpb) 4 gm in 50 mls @ 12.5 mls/hr IV X1 ONE Stop: 10/28/24 12:32 Last Admin: 10/28/24 08:58 Dose: 12.5 mls/hr Potassium Phosphate (Pot Phos 15 Mmol In Ns 250 Ml) 15 mmol in 250 mls @ 62.5 mls/hr IV X1 ONE Stop: 10/28/24 13:29 Last Admin: 10/28/24 10:52 Dose: 62.5 mls/hr Lidocaine HCl (Lidocaine Viscous 2% 15 Ml Udc) 15 ml PO X1 ONE Stop: 10/28/24 16:32 Last Admin: 10/28/24 17:58 Dose: Not Given Metoprolol Succinate (Metoprolol Succinate Xl 25 Mg Tabcr) 100 mg PO X1 ONE Stop: 10/28/24 17:35 Last Admin: 10/28/24 17:45 Dose: 100 mg Midazolam HCl (Midazolam Inj 1 Mg/Ml Vial 2 Ml) 8 mg IVP X1 ONE Stop: 10/28/24 16:33 Last Admin: 10/28/24 16:57 Dose: 8 mg Potassium Chloride (Potassium Chloride 20 Meq Tabcr) 20 meq PO X1 ONE Stop: 10/28/24 07:02 Last Admin: 10/28/24 08:07 Dose: 20 meq Assessment & Plan Plan The patient is a 54-year-old female with significant past medical history of chronic back pain, neuropathy and right hip replacement presented to ED with chief complaint of SOB and palpitation and was found to have atrial flutter with 2 is to 1 conduction. #A flutter with RVR The patient presented with SOB and palpitation and EKG revealed atrial flutter with 2:1 conduction. Etiology currently unknown, no previous cardiac history - Started the patient on diltiazem drip - Telemetry monitoring - Maintain magnesium and potassium greater than 2 and 4 respectively at all times - Monitor closely # Peripheral neuropathy #Chronic back pain - Defer the management to primary hospitalist team. Thank you for the opportunity to participate cardiology team in this patient's care. The patient's management plan was discussed with my attending physician MD Ed Monsivais MD, PGY3 Attending Provider Attestation/Addendum I have personally seen and examined the patient separately on the above date of service and discussed the plan of care with the resident. I reviewed the resident Dr. Ed Alvarado consultation progress note and agree with the resident findings and plan in the note above and have also edited the documentation to reflect my findings and plan. A 54-year-old female with past medical history of obesity, chronic back pain, peripheral neuropathy and right hip replacement, family history of heart disease with father with CABG and PCI, on Zepbound for weight loss presented to the emergency department for further complaints of shortness of breath as well as palpitations. In the emergency department patient was found to have atrial flutter with RVR with 2 is to 1 AV block rest of the vitals and labs were in the normal range except the BUN was 19 and creatinine was 1.2. Potassium was 4.5 and magnesium was also normal. U tox was positive for opiates. Chest x-ray was negative. Send cardiology was consulted for further management of atrial flutter with RVR. Assessment and plan: 1. Atrial flutter with RVR- 2:1 AV block 2. Morbid obesity 3. Significant family history of heart disease with father having CABG as well as PCI 4. Chronic back pain 5. Peripheral neuropathy 6. On zepbound for weight loss 7. Will need to rule out ANAMARIA No clear trigger for the atrial flutter except that patient is on weight loss medication zepbound. Other risk factors include obesity along with possible ANAMARIA but she has never been diagnosed with the same. Started patient diltiazem bolus as well as drip but no significant improvement in the heart rate. Discussed with the patient regarding the need for the MONISHA with cardioversion as atrial flutter is difficult to control. Will continue with diltiazem drip for now we will do MONISHA with cardioversion today. Patient denies any kind of swallowing problems or any kind of esophageal interventions or previous surgeries. Patient denies any kind of gastric ulcers bleeding and any other hematemesis or hematochezia. Patient denies any issues with anesthesia previously. Patient explained all the risks, benefits and alternatives of MONISHA including the risk of perforation, bleeding, respiratory failure secondary to sedation, injury to teeth gums esophagus and stomach. Patient understands all risks and benefits and provided consent for the procedure. Pt has been NPO for the MONISHA TSH normal. Check free T4 as well as A1c and lipid profile for further cardiac risk stratification. Management of rest of the medical conditions as per primary team and other consultants. Thank you for the consult and allowing me to participate in the care of the patient. Cardiology will continue to follow. Garrett Gonsalez M.D. Interventional Cardiology
--- NOTE | 2024-10-27 23:44 | PC.NURSE ---
DR. SAGASTUME WAS INFORMED THAT PTS RHYTHM GOES FROM A FIB TO A FLUTTER. PROVIDER WAS INFORMED THAT PT IS ASYMPTOMATIC DENIES SOB AND CHEST PAIN. PROVIDER INFORMED ME TO CALL HIM IF HEART RATE EXCEEDS 150BPM
[2024-10-28] VITALS (34 sets, daily range): BP systolic 88–156; BP diastolic 59–107; PULSE 68–154; RESP 10–25; TEMP 36.4–36.7; O2SAT 92–99
--- NOTE | 2024-10-28 03:16 | PC.NURSE ---
WE HAD DOWN TIME FROM [id number].
[2024-10-28] MEDS: DILTIAZEM in D5W 125 MG 125 MG/125 ML BAG 10 MG IV ×2 (03:49→13:14)
[2024-10-28 05:21] LABS: Basophils # (Auto) 0.1 Thou/mm3 (0.0-0.2); Basophils % (Auto) 1 % (0-2.5); Eosinophils # (Auto) 0.3 Thou/mm3 (0.0-0.5); Eosinophils % (Auto) 3 % (0-10); Hematocrit 39.5 % (36.0-46.0); Hemoglobin 12.8 g/dL (12.0-16.0); Immature Granulocytes Auto 0.01 Thou/mm3 (0.00-0.00); Lymphocytes # (Auto) 3.0 Thou/mm3 (1.0-4.8); Lymphocytes % (Auto) 30 % (10-50); Mean Corpuscular HGB Conc 32.4 g/dl (31.0-37.0); Mean Corpuscular Hemoglobin 28.2 pg (25.0-35.0); Mean Corpuscular Volume 87 fL (80-100); Monocytes # (Auto) 0.8 Thou/mm3 (0.0-0.8); Monocytes % (Auto) 7 % (0-12); Neutrophils # (Auto) 6.0 Thou/mm3 (1.8-7.7); Neutrophils % (Auto) 60 % (37-80); Nucleated Red Blood Cell # 0.00 Thou/mm3 (0.00-0.00); Nucleated Red Blood Cell % 0 /100 WBC (0); Platelet Count 242 Thou/mm3 (140-440); RDW Standard Deviation 46.2 fL (36.4-46.3); Red Blood Count 4.54 Miln/mm3 (4.00-5.20); White Blood Count 10.1 Thou/mm3 (3.6-11.0)
[2024-10-28 05:28] LABS: INR 1.0 (0.9-1.3); Prothrombin Time 11.4 Seconds (9.0-12.2)
[2024-10-28 05:52] LABS: Alanine Aminotransferase 13 U/L (10-49); Albumin, Serum 4.2 gm/dL (3.5-5.0); Albumin/Globulin Ratio 1.8 (1.2-2.2); Alkaline Phosphatase 89 U/L (46-116); Anion Gap 7 (7-16); Aspartate Amino Transferase 18 U/L (0-34); BUN/Creatinine Ratio 13 Ratio (12-20); Bilirubin,Total 0.5 mg/dL (0.3-1.2); Blood Urea Nitrogen 14 mg/dL (9-23); Calcium 9.3 mg/dL (8.3-10.6); Calcium (Corrected) 9.3 mg/dL (8.5-10.1); Carbon Dioxide 25.6 mMol/L (20.0-31.0); Chloride 111 mMol/L (98-107); Creatinine (Component) 1.1 mg/dL (0.6-1.3); Estimated Creatinine Clearance 70.2 mL/min (>60); Globulin 2.3 gm/dL (2.3-3.5); Glucose 92 mg/dL (74-106); Magnesium 1.7 mg/dL (1.6-2.6); Osmolality,Calculated 287 (275-295); Phosphorous 2.2 mg/dL (2.4-5.1); Potassium 3.9 mMol/L (3.4-5.1); Sodium 144 mMol/L (136-145); Thyroid Stimulating Hormone 0.87 uIU/mL (0.55-4.78); Total Protein 6.5 gm/dL (5.7-8.2); eGFR > 60 See Note
[2024-10-28] MEDS: HEPARIN SOD INJ 5000 UNIT/ML VIAL SC ×2 (08:10→20:00)
--- NOTE | 2024-10-28 08:11 | EKG_ITS ---
[facility] Test Date: 2024-10-28 Pat Name: SHAHEED JONES Department: Room: S258A Gender: Female [employer]: PRISCILLA : 1970 Requested By: Liliana Yoo Order Number: [id number] Reading MD: Liliana Yoo Measurements Intervals [place] Rate: 97 P: MA: QRS: 31 QRSD: 88 T: 32 QT: 375 QTc: 478 Interpretive Statements ATRIAL FLUTTER/TACHYCARDIA NONSPECIFIC T-WAVE ABNORMALITY ABNORMAL RHYTHM ECG Compared to ECG 10/27/2024 18:47:27 T-wave abnormality now present ST (T wave) deviation no longer present Myocardial infarct finding no longer present /store/S0/[id number]/ecg/[id number].pdf
--- NOTE | 2024-10-28 08:30 | ESPR_ITS ---
Documentation for date of: 10/28/24 Senior resident attestation: Patient evaluated and examined at the bedside, plan of care discussed with rest of the team including my attending physician, except as noted. Quresh PGY3 Subjective Subjective Interval history: No acute events overnight. Patient seen and examined at bedside this AM. Patient was admitted to telemetry, was lying comfortably in bed and conversing. Started Zepbound 2 months ago and has not noticed any adverse effects. Patient reports she is not truly allergic to SMX ot TMP, she had a small rash when first prescribed but it never happened again, also tolerates celebrex without issue. Also not allergic to prednisone, just developed swelling from chronic use. Labs and vitals were reviewed. Magnesium was borderline low at 2.1, was repleted with 4g Mg. Phosphorus also repleted. No further complaints at this time, denies chest pain and shortness of breath. Review of systems otherwise negative except what is mentioned above. Exam Vital Signs Temp Pulse Resp BP Pulse Ox O2 Del Method 97.8 F 151 H 19 136/91 H 98 Room Air 10/28/24 06:05 10/28/24 06:41 10/28/24 06:05 10/28/24 06:41 10/28/24 06:05 10/28/24 06:05 Narrative Exam Physical Exam General: Awake and in no acute distress. Lying in bed. Conversational and non- toxic appearing. was present in room. HEENT: Normocephalic, atraumatic, mucous membranes moist. Heart: Tachycardic with atrial flutter, normal S1 and S2, no murmurs appreciated. Lungs: Clear to auscultation with no wheezing or crackles. Abdomen: Soft, nondistended, nontender, positive bowel sounds. No guarding or rebound tenderness. Neurologic: Alert and oriented x3, no gross neurological deficit, and patient able to move all 4 extremities. Extremities: No edema. Skin: No rash or ecchymoses. Objective Labs 10/29/24 05:25 10/29/24 16:58 Labs: Laboratory Results - last 24 hr 10/27/24 10/27/24 10/28/24 19:10 19:40 04:36 WBC 9.4 10.1 RBC 4.64 4.54 Hgb 13.1 12.8 Hct 39.6 39.5 MCV 85 87 MCH 28.2 28.2 MCHC 33.1 32.4 RDW Std Deviation 45.0 46.2 Plt Count 254 242 Neut % (Auto) 58 60 Lymph % (Auto) 31 30 [place] % (Auto) 8 7 Eos % (Auto) 2 3 Baso % (Auto) 0 1 Neut # (Auto) 5.5 6.0 Lymph # (Auto) 3.0 3.0 [place] # (Auto) 0.8 0.8 Eos # (Auto) 0.2 0.3 Baso # (Auto) 0.0 0.1 Immature Gran # (Auto) 0.02 H 0.01 H Absolute Nucleated RBC 0.00 0.00 Immature Gran % 0 0 Nucleated RBC % 0 0 PT 11.4 INR 1.0 Sodium 141 144 Potassium 4.3 3.9 Chloride 106 111 H Carbon Dioxide 26.4 25.6 Anion Gap 9 7 BUN 19 14 Creatinine 1.1 1.1 Estim Creat Clear Calc 70.2 70.2 eGFR > 60 > 60 BUN/Creatinine Ratio 17 13 Glucose 91 92 Calculated Osmolality 283 287 Calcium 10.1 9.3 Corrected Calcium 10.1 9.3 Phosphorus 2.2 L Magnesium 2.0 1.7 Total Bilirubin 0.3 0.5 AST 20 18 ALT 15 13 Alkaline Phosphatase 92 89 Total Protein 7.3 6.5 Albumin 4.8 4.2 D Globulin 2.5 2.3 Albumin/Globulin Ratio 1.9 1.8 TSH 0.87 HCG, Qual Negative Ur Collection Type Voided Urine Color Colorless A Urine Clarity Clear Urine pH 6.5 Ur Specific [place] 1.008 Urine Protein Negative Urine Glucose (UA) Negative Urine Ketones Negative Urine Blood Negative Urine Nitrite Negative Urine Bilirubin Negative Urine Urobilinogen (Auto) Negative Ur Leukocyte Esterase Positive Urine RBC 2 Urine WBC 11 H Ur Squamous Epith Cells 1 Urine Bacteria Rare Urine Opiates Screen Positive A Urine Fentanyl Screen Negative Ur Barbiturates Screen Negative U Amphetamin/Meth Scrn Negative U Benzodiazepines Scrn Negative U Cocaine Metab Screen Negative U Marijuana (THC) Screen Negative Quality Measures Quality Measures none Assessment & Plan Assessment Current Active Medications: Generic Name Dose Route Start Last Admin Trade Name Freq PRN Reason Stop Dose Admin Acetaminophen 650 mg 10/27/24 21:14 Acetaminophen 325 Mg Tablet PO 11/26/24 21:13 Q6H PRN Pain 1-3 and/or Fever >100.1 Heparin Sodium (Porcine) 5,000 unit 10/28/24 09:00 10/28/24 08:10 Heparin Sod Inj 5000 Unit/Ml Vial SC 11/11/24 08:59 5,000 unit Q12HR ETHAN Administration Diltiazem HCl 125 mg in 125 mls @ 10 mls/hr 10/28/24 03:14 10/28/24 03:49 Diltiazem In D5w 125 Mg IV 11/27/24 03:13 10 mg/hr .[id number] ETHAN 10 mls/hr Administration 10 MG/HR Magnesium Sulfate 2 gm in 50 mls @ 25 mls/hr 10/28/24 07:01 Magnesium Sulfate Ivpb IV 10/28/24 09:00 X1 ONE Magnesium Sulfate 2 gm in 50 mls @ 25 mls/hr 10/28/24 08:00 Magnesium Sulfate Ivpb IV 10/28/24 09:59 X1 ONE Ondansetron HCl 4 mg 10/27/24 21:14 Ondansetron Inj 2 Mg/Ml Inj 2 Ml IVP 11/26/24 21:13 Q6H PRN NAUSEA OR VOMITING Protocol Sennosides 1 tab 10/27/24 21:14 Senna Tablet PO 11/26/24 21:13 QDAY PRN constipation Protocol Plan Patient is a 54-year-old female with history of right hip replacement, chronic back pain and neuropathy presented to the ED on 10/27 with episode of shortness of breath and palpitations, admitted for newly diagnosed atrial flutter/A-fib with RVR on diltiazem drip, pending TTE and cardioversion today. #A flutter with RVR Patient presented with singular episode of palpitations associate with shortness of breath, denies having any cardiac history in the past however patient's father with coronary artery disease with stents and CABG. In ED, heart rate fluctuates from low of 98 to a high of 140, eventually stabilized to 110s on diltiazem drip. EKG did show atrial flutter with rapid ventricular response and there was noted ST minor less than 1 mm elevation in inferior leads without any reciprocal changes. Troponin within normal limits and the patient denies having any chest pain. TTE today showed estimated EF of 55-60% with trace TR but otherwise unremarkable. Patient remains in aflutter this morning despite diltiazem; cardiology will do MONISHA and cardioversion. Plan: -continue IV diltiazem -cardiology consulted, appreciate recommendations -pending MONISHA and cardioversion -NPO since midnight, can resume cardiac diet after procedure #Hx of Right hip replacement #Chronic back pain #Neuropathy -will restart home dose gabapentin as there is no contraindications -hold home dose celebrex per cardiology recommendations Health Maintenance: Lines: PIV Diet: Cardiac Bowel: Senna PRN GI prophylaxis: Not needed DVT prophylaxis: Heparin subcutaneous Dispo: Pending MONISHA and cardioversion Code: Full Patient plan of care was discussed with the senior resident, Dr. Velasco, and attending physician, Dr. Julieta Mcfarlane, PGY-1 Attending Provider Attestation/Addendum I have discussed and was present for the essential components of the history, physical examination, diagnosis, and treatment plan with the resident. I agree with the patient's care as documented by the resident and amended herein by me. Neto Rendon, DO. Replete electrolytes as needed, continue diltiazem drip for now as heart rate is relatively controlled, echocardiogram pending, cardiology consult, appreciate recommendations Although this document has been carefully reviewed, there may still be some phonetic and other typographical errors. These errors are purely grammatical due to imperfections in the software program and should not be construed in any way to compromise the substance of the patient's medical care during this visit.
[2024-10-28] MEDS: Magnesium Sulfate 4 GM Ivpb 4 GM/50 ML BAG IV (08:58)
[2024-10-28] MEDS: POT PHOS 15 mMol in NS 250 ML 15 MMOL/250 ML BAG 62.5 MMOL IV (10:52)
--- NOTE | 2024-10-28 13:29 | PD.RESPRO ---
Documentation for date of: 10/28/24 Subjective Subjective Interval history: The patient was interviewed and examined at the bedside this morning. She reported doing much better. She denied any chest pain, SOB, headache, dizziness, orthopnea/PND, fever or chills. However, she continued to have potation's. Her vitals were significant for HR ranging from 120-140, and continues to be in A flutter with 2:1 block, and she continues to be in dilt drip 10mg/hr. Later this afternoon, the patient underwent successful cardiovertion after MONISHA was negative for any atrial clot. We will continue the patient on diltiazem drip until 2-hour after giving metoprolol succinate 100 Mg p.o. x 1. Exam Vital Signs Temp Pulse Resp BP Pulse Ox O2 Del Method 97.9 F 102 H 18 137/88 H 98 Room Air 10/28/24 08:00 10/28/24 08:00 10/28/24 08:00 10/28/24 08:00 10/28/24 08:00 10/28/24 08:00 Narrative Exam General: No acute distress, Alert and Oriented x 3 HEENT: Moist mucous membranes, oropharynx clear Neck: Supple, No masses, No JVD CVS: S1S2 Regular rate and rhythm, No murmurs, rubs or gallops (After cardioversion of A flutter) Lungs: Clear to auscultation with no accessory use, no wheeze no rhonchi Abd: Soft, NT/ND, +BS, no organomegaly Ext: No edema, warm and well perfused Skin: No rash Psych: Appropriate mood and affect Objective Labs 10/29/24 05:25 10/29/24 05:25 Labs: Laboratory Results - last 24 hr 10/27/24 10/27/24 10/28/24 19:10 19:40 04:36 WBC 9.4 10.1 RBC 4.64 4.54 Hgb 13.1 12.8 Hct 39.6 39.5 MCV 85 87 MCH 28.2 28.2 MCHC 33.1 32.4 RDW Std Deviation 45.0 46.2 Plt Count 254 242 Neut % (Auto) 58 60 Lymph % (Auto) 31 30 [place] % (Auto) 8 7 Eos % (Auto) 2 3 Baso % (Auto) 0 1 Neut # (Auto) 5.5 6.0 Lymph # (Auto) 3.0 3.0 [place] # (Auto) 0.8 0.8 Eos # (Auto) 0.2 0.3 Baso # (Auto) 0.0 0.1 Immature Gran # (Auto) 0.02 H 0.01 H Absolute Nucleated RBC 0.00 0.00 Immature Gran % 0 0 Nucleated RBC % 0 0 PT 11.4 INR 1.0 Sodium 141 144 Potassium 4.3 3.9 Chloride 106 111 H Carbon Dioxide 26.4 25.6 Anion Gap 9 7 BUN 19 14 Creatinine 1.1 1.1 Estim Creat Clear Calc 70.2 70.2 eGFR > 60 > 60 BUN/Creatinine Ratio 17 13 Glucose 91 92 Calculated Osmolality 283 287 Calcium 10.1 9.3 Corrected Calcium 10.1 9.3 Phosphorus 2.2 L Magnesium 2.0 1.7 Total Bilirubin 0.3 0.5 AST 20 18 ALT 15 13 Alkaline Phosphatase 92 89 Total Protein 7.3 6.5 Albumin 4.8 4.2 D Globulin 2.5 2.3 Albumin/Globulin Ratio 1.9 1.8 TSH 0.87 HCG, Qual Negative Ur Collection Type Voided Urine Color Colorless A Urine Clarity Clear Urine pH 6.5 Ur Specific [place] 1.008 Urine Protein Negative Urine Glucose (UA) Negative Urine Ketones Negative Urine Blood Negative Urine Nitrite Negative Urine Bilirubin Negative Urine Urobilinogen (Auto) Negative Ur Leukocyte Esterase Positive Urine RBC 2 Urine WBC 11 H Ur Squamous Epith Cells 1 Urine Bacteria Rare Urine Opiates Screen Positive A Urine Fentanyl Screen Negative Ur Barbiturates Screen Negative U Amphetamin/Meth Scrn Negative U Benzodiazepines Scrn Negative U Cocaine Metab Screen Negative U Marijuana (THC) Screen Negative Quality Measures Quality Measures none Assessment & Plan Assessment Current Active Medications: Generic Name Dose Route Start Last Admin Trade Name Freq PRN Reason Stop Dose Admin Acetaminophen 650 mg 10/27/24 21:14 Acetaminophen 325 Mg Tablet PO 11/26/24 21:13 Q6H PRN Pain 1-3 and/or Fever >100.1 Heparin Sodium (Porcine) 5,000 unit 10/28/24 09:00 10/28/24 08:10 Heparin Sod Inj 5000 Unit/Ml Vial SC 11/11/24 08:59 5,000 unit Q12HR ETHAN Administration Diltiazem HCl 125 mg in 125 mls @ 10 mls/hr 10/28/24 03:14 07/02/25 03:49 Diltiazem In D5w 125 Mg IV 11/27/24 03:13 10 mg/hr .[id number] ETHAN 10 mls/hr Administration 10 MG/HR Ondansetron HCl 4 mg 10/27/24 21:14 Ondansetron Inj 2 Mg/Ml Inj 2 Ml IVP 11/26/24 21:13 Q6H PRN NAUSEA OR VOMITING Protocol Sennosides 1 tab 10/27/24 21:14 Senna Tablet PO 11/26/24 21:13 QDAY PRN constipation Protocol Plan The patient is a 54-year-old female with significant past medical history of chronic back pain, neuropathy and right hip replacement presented to ED with chief complaint of SOB and palpitation and was found to have atrial flutter with 2 is to 1 conduction. #A flutter with RVR The patient presented with SOB and palpitation and EKG revealed atrial flutter with 2:1 conduction. Etiology currently unknown, no previous cardiac history - MONSIHA done was negative for any thrombus in Left atrium or Left atrial appendage - Patient underwent successful cardioversion with 75 J shock x1 - Metoprolol succinate 100 Mg p.o. x 1 Given, and started on metoprolol succinate 100 Mg p.o. daily - Continue on diltiazem drip until 2-hour after metoprolol succinate 100 Mg p.o. x 1 is given. - Telemetry monitoring - Maintain magnesium and potassium greater than 2 and 4 respectively at all times - Monitor closely # Peripheral neuropathy # Chronic back pain - Defer the management to primary hospitalist team. Thank you for the opportunity to participate cardiology team in this patient's care. The patient's management plan was discussed with my attending physician MD Ed Monsivais MD, PGY3 Attending Provider Attestation/Addendum I have personally seen and examined the patient separately on the above date of service and discussed the plan of care with the resident. I reviewed the resident Dr. Ed Alvarado consultation progress note and agree with the resident findings and plan in the note above and have also edited the documentation to reflect my findings and plan. Garrett Gonsalez M.D. Interventional Cardiology
--- NOTE | 2024-10-28 16:29 | ECHO_ITS ---
Transesophageal Echo Report Ht (in): 67 Wt (lb): 206 Exam Location: Echo Lab Status: Inpatient Belting And Webbing Inspector: Jefferson Ciera Indications: Procedure Performed: BP: 150 / 98 HR: 155 Technical Quality: Adequate FINDINGS Left Ventricle Normal left ventricular size, wall thickness. Hyperdynamic stystolic function. The ejection fraction is visually estimated at >70%. Right Ventricle The right ventricle is normal in size and systolic function. Left Atrium The left atrium is normal by two-dimensional, color flow and Doppler imaging with no structural abnormalities, no thrombus formation present. Right Atrium The right atrium is normal by two-dimensional imaging, color flow and Doppler imaging with no structural abnormalities, no thrombus formation present. Atrial Appendages The left atrial appendage appears normal with no evidence for thrombus. Atrial Septum The interatrial septum appears normal with no evidence of a shunt. Bubble study negative for PFO/ASD. Aorta The aorta is normal by two-dimensional, color flow and Doppler interrogation. Mitral Valve The mitral valve is normal by two-dimensional, color flow and Doppler interrogation. There is mild mitral regurgitation. Aortic Valve The aortic valve is trileaflet and normal by two-dimensional, color flow and Doppler interrogation. There is no significant aortic valve regurgitation. Tricuspid Valve The tricuspid valve is normal by two-dimensional, color flow and Doppler interrogation. There is no significant tricuspid valve regurgitation. Pulmonic Valve The pulmonic valve is normal by two-dimensional, color flow and Doppler interrogation. There is no significant pulmonic valve regurgitation. Vessels The pulmonary artery appears normal. The inferior vena cava pulmonary and hepatic veins appear normal. Pericardium The pericardium is normal by two-dimensional imaging. There is no significant pericardial effusion. CONCLUSIONS Indication: Atrial Flutter Bubble Study Negative for PFO/ASD. No LA /WALTER thrombus Normal LV size and function. Hyperdynamic Systolic Function. Estimated EF >70%. Normal RV size and function. Trace TR and mild MR. No Pericardial Effusion. Garrett Gonsalez (Electronically Signed) Final Date: 29 October 2024 07:31
[2024-10-28] MEDS: BENZOCAINE 20% (Hurricaine) SPRAY 1 DOSE TOP (16:57)
[2024-10-28] MEDS: MIDAZOLAM INJ 1 MG/ML VIAL 2 ML 8 MG IVP (16:57)
[2024-10-28] MEDS: fentaNYL CIT INJ 50 mCg/ML AMP 2ML 200 MCG IVP (16:57)
--- NOTE | 2024-10-28 17:00 | PD.CARDOPNOT ---
Procedure Direct current cardioversion for uncontrolled atrial flutter Moderate Conscious Sedation with Versed and Fentanyl Date of Procedure 10/28/24 Pre Op Diagnosis Atrial atrial flutter with RVR and 2 is to 1 AV block Indication Atrial atrial flutter with RVR and 2 is to 1 AV block Post Op Diagnosis Normal Sinus Rhythm restored. Procedure Description Patient presented with atrial flutter with RVR and the rate was difficult to control with diltiazem. Decision was made to perform cardioversion for the patient after performing a transesophageal echocardiogram. Transesophageal echocardiogram was completed today and did not show any significant LA or WALTER thrombus.? Please see MONISHA report from today for rest of the findings.? Patient was already on anticoagulation with eliquis.. Patient was taken to the ICU for the MONISHA and cardioversion, both anterior and posterior pads were placed.? Patient was given moderate sedation and received a total of 6 mg of Versed and 125 mcg of fentanyl prior to the procedure to provide her enough sedation for both the MONISHA as well as the cardioversion.. A biphasic defibrillator was used.? A single 75 J synchronized shock was given and the patient converted successfully into normal sinus rhythm.? No complications during or after the procedure.? Patient is doing well.? His heart rate was stable between 80-90 bpm and appears to be normal sinus rhythm on the telemetry.? Recommend to perform an EKG to document normal sinus rhythm postprocedure.? Patient will be monitored in the ICU for the next 1-2 hours and will be downgraded to telemetry when hemodynamically stable. Will adjust her medications for atrial fibrillation as outpatient. Estimated Blood Loss 0 Specimen(s) Specimen(s): None Conclusion Successful direct current cardioversion of Atrial flutter with RVR to Normal Sinus Rhythm Recommendation Start metoprolol XL 100 mg once daily and then stop the diltiazem drip after 2 hours. Continue Eliquis 5 mg BID for anticaogulation. EKG to document NSR post procedure. No driving for 24 hours. Patient recommended to follow up in 1 week in the clinic. Surgical Staff Surgeon: Garrett Gonsalez MD
[2024-10-28] MEDS: METOPROLOL SUCCINATE XL 25 MG TABCR 100 MG PO (17:45)
[2024-10-28] MEDS: GABAPENTIN 100 MG CAPSULE PO (20:00)
--- NOTE | 2024-10-28 20:54 | ECHO_ITS ---
Transthoracic Echo Report Ht (in): 67 Wt (lb): 206 Exam Location: Echo Lab Status: Inpatient Certified Professional Coder: Ciera Paulino Indications: Procedure Performed: BP: 127 / 82 HR: 143 Technical Quality: Adequate MEASUREMENTS (Male / Female) Normal Values 2D ECHO LV Diastolic Diameter PLAX 4.7 cm 4.2 - 5.9 / 3.9 - 5.3 cm LV Systolic Diameter PLAX 3.8 cm IVS Diastolic Thickness 0.9 cm 0.6 - 1.0 / 0.6 - 0.9 cm LVPW Diastolic Thickness 1.1 cm 0.6 - 1.0 / 0.6 - 0.9 cm LV Relative Wall Thickness 0.4 LVOT Diameter 2.0 cm LA Volume Index 21.5 cm?/m? 16 - 28 cm?/m? Ascending Aorta Diameter 3.0 cm M-MODE AV Cusp Separation MM 1.8 cm DOPPLER AV Peak Velocity 74.7 cm/s AV Peak Gradient 2.2 mmHg LVOT Peak Velocity 71.2 cm/s LVOT Peak Gradient 2.0 mmHg AV Area Cont Eq pk 3.0 cm? PV Peak Velocity 85.1 cm/s PV Peak Gradient 2.9 mmHg FINDINGS Left Ventricle The left ventricular cavity size is normal. The left ventricular sharif are upper normal in thickness. The left ventricular ejection fraction is mildly decreased, estimated at 45-50%. Unable to assess diastology due to atrial flutter. Right Ventricle The right ventricle is normal in size and systolic function. The estimated right ventricular systolic pressure can not be determined due to innadequate tricuspid signal. Left Atrium The left atrium is normal by two-dimensional, color flow and Doppler imaging with no structural abnormalities, no thrombus formation present. Right Atrium The right atrium is normal by two-dimensional imaging, color flow and Doppler imaging with no structural abnormalities, no thrombus formation present. Atrial Septum The interatrial septum appears normal with no evidence of a shunt. Aorta The aorta is normal by two-dimensional, color flow and Doppler interrogation. Mitral Valve The mitral valve is normal by two-dimensional, color flow and Doppler interrogation. There is no significant mitral valve regurgitation, stenosis or prolapse. Aortic Valve The aortic valve is trileaflet and normal by two-dimensional, color flow and Doppler interrogation. There is no significant aortic valve regurgitation. Tricuspid Valve The tricuspid valve is normal by two-dimensional, color flow and Doppler interrogation. There is no significant tricuspid valve regurgitation. Pulmonic Valve The pulmonic valve is not well visualized. There is trace pulmonic regurgitation. Vessels The pulmonary artery appears normal. The inferior vena cava pulmonary and hepatic veins appear normal. Pericardium The pericardium is normal by two-dimensional imaging. There is no significant pericardial effusion. CONCLUSIONS Indications: New onset Atrial Flutter Normal LV size and function. Estimated EF of 55 to 60%. Diastolic function cannot be estimated because of the anemia. Normal RV size and function. Trace TR and PI. No Pericardial Effusion. Garrett Gonsalez (Electronically Signed) Final Date: 28 October 2024 13:30
[2024-10-29] VITALS (17 sets, daily range): BP systolic 81–130; BP diastolic 59–89; PULSE 61–85; RESP 15–22; TEMP 36.2–36.7; O2SAT 93–99
[2024-10-29 05:55] LABS: Basophils # (Auto) 0.0 Thou/mm3 (0.0-0.2); Basophils % (Auto) 0 % (0-2.5); Eosinophils # (Auto) 0.3 Thou/mm3 (0.0-0.5); Eosinophils % (Auto) 4 % (0-10); Hematocrit 41.4 % (36.0-46.0); Hemoglobin 13.4 g/dL (12.0-16.0); Immature Granulocytes Auto 0.03 Thou/mm3 (0.00-0.00); Lymphocytes # (Auto) 2.4 Thou/mm3 (1.0-4.8); Lymphocytes % (Auto) 25 % (10-50); Mean Corpuscular HGB Conc 32.4 g/dl (31.0-37.0); Mean Corpuscular Hemoglobin 28.4 pg (25.0-35.0); Mean Corpuscular Volume 88 fL (80-100); Monocytes # (Auto) 0.7 Thou/mm3 (0.0-0.8); Monocytes % (Auto) 7 % (0-12); Neutrophils # (Auto) 6.0 Thou/mm3 (1.8-7.7); Neutrophils % (Auto) 63 % (37-80); Nucleated Red Blood Cell # 0.00 Thou/mm3 (0.00-0.00); Nucleated Red Blood Cell % 0 /100 WBC (0); Platelet Count 250 Thou/mm3 (140-440); RDW Standard Deviation 47.1 fL (36.4-46.3); Red Blood Count 4.72 Miln/mm3 (4.00-5.20); White Blood Count 9.5 Thou/mm3 (3.6-11.0)
[2024-10-29 06:32] LABS: Alanine Aminotransferase 13 U/L (10-49); Albumin, Serum 4.2 gm/dL (3.5-5.0); Albumin/Globulin Ratio 1.8 (1.2-2.2); Alkaline Phosphatase 88 U/L (46-116); Anion Gap 8 (7-16); Aspartate Amino Transferase 16 U/L (0-34); BUN/Creatinine Ratio 13 Ratio (12-20); Bilirubin,Total 0.4 mg/dL (0.3-1.2); Blood Urea Nitrogen 19 mg/dL (9-23); Calcium 9.1 mg/dL (8.3-10.6); Calcium (Corrected) 9.1 mg/dL (8.5-10.1); Carbon Dioxide 25.8 mMol/L (20.0-31.0); Chloride 108 mMol/L (98-107); Creatinine (Component) 1.5 mg/dL (0.6-1.3); Estimated Creatinine Clearance 50.7 mL/min (>60); Globulin 2.3 gm/dL (2.3-3.5); Glucose 89 mg/dL (74-106); Magnesium 2.5 mg/dL (1.6-2.6); Osmolality,Calculated 284 (275-295); Phosphorous 4.5 mg/dL (2.4-5.1); Potassium 4.5 mMol/L (3.4-5.1); Sodium 142 mMol/L (136-145); Total Protein 6.5 gm/dL (5.7-8.2); eGFR 42 See Note
[2024-10-29] MEDS: HEPARIN SOD INJ 5000 UNIT/ML VIAL SC (08:46)
[2024-10-29] MEDS: GABAPENTIN 100 MG CAPSULE PO (08:46)
[2024-10-29] MEDS: RINGERS LACTATED 1000 ML 1,000 ML 999 ML IV (08:46)
--- NOTE | 2024-10-29 08:59 | EKG_ITS ---
[facility] Test Date: 2024-10-29 Pat Name: SHAHEED JONES Department: Room: 58A Gender: Female Hiv Prevention Specialist: PRISCILLA : 1970 Requested By: Ana Velasco Order Number: [id number] Reading MD: Ana Velasco Measurements Intervals [place] Rate: 60 P: 58 TN: 188 QRS: 22 QRSD: 91 T: 35 QT: 432 QTc: 432 Interpretive Statements SINUS RHYTHM POSSIBLE LEFT ATRIAL ENLARGEMENT Compared to ECG 10/28/2024 11:32:03 Atrial flutter no longer present T-wave abnormality no longer present /store/S0/[id number]
--- NOTE | 2024-10-29 09:11 | ESPR_ITS ---
<Statement entered by Tana Chatman MD - 11/05/24 14:54> I reviewed above note and agree with findings and plans. I have also personally examined the patient with medicine team and went over assessment and plan with medical team including international organizer and resident physician. Documentation for date of: 10/29/24 Senior resident attestation: Patient evaluated and examined at the bedside, plan of care discussed with rest of the team including my attending physician, except as noted. The patient is in post MONISHA and cardioversion in ICU, rhythm converted to sinus, rate controlled, started anticoagulation Eliquis and metoprolol per cardiology recommendations, diltiazem drip was discontinued, noted slight uptrend in serum creatinine, patient reported she has had kidney problems in the past, and was told to follow-up with sterile process tech Dr Parnell, but lost to follow-up. Baseline creatinine on admission was normal, now creatinine 1.5, patient was recommended to stay 1 more day for observation in light of acute kidney injury, though patient is okay to be discharged from cardiology standpoint. RN called in the afternoon the patient is is insisting on leaving AGAINST MEDICAL ADVICE, I spoke to the patient and her at the bedside, described the need for continued observation in light of WAI, risk of worsening renal function, possible need for IV fluids and nephrology consultation, observation to evaluate for complications including risk of , but Ms. Adhikari insisted on leaving AGAINST MEDICAL ADVICE. I did order 10 days worth of antiarrhythmic medication and anticoagulation to prevent risk of life-threatening arrhythmia and stroke. The patient was given strict instructions to follow-up with sterile process tech and calender let off helper after getting her renal functions tested as soon as possible. The patient demonstrated understanding of instructions, including returning to emergency room in case of worsening symptoms. She will be discharged AMA. Quresh PGY3 Subjective Subjective Interval history: Patient was left on diltiazem drip overnight, was supposed to be discontinued 2 hours post cardioversion. Discontinued 7AM today. Patient was NPO majority of yesterday so patient is also likely dehydrated, will consider bolus NS. Patient seen and examined at bedside this AM, doing well. Labs and vitals were reviewed. Pressures were soft overnight (systolic as low as 81) Creatinine was slightly elevated at 1.5 today, likely due to renal hypoperfusion. No further complaints at this time, denies chest pain, palpitations, and shortness of breath. Review of systems otherwise negative except what is mentioned above. Exam Vital Signs Temp Pulse Resp BP Pulse Ox O2 Del Method 97.9 F 72 16 87/63 L 94 L Room Air 10/29/24 04:00 10/29/24 04:00 10/29/24 04:00 10/29/24 04:00 10/29/24 04:00 10/28/24 20:00 Narrative Exam Physical Exam General: Awake and in no acute distress. Conversational and non-toxic appearing. HEENT: Normocephalic, atraumatic, mucous membranes moist. Heart: Bradycardic. Regular rate and rhythm, normal S1 and S2, no murmurs. Lungs: Clear to auscultation with no wheezing or crackles. Abdomen: Soft, nondistended, nontender, positive bowel sounds. No guarding or rebound tenderness. Neurologic: Alert and oriented x3, no gross neurological deficit, and patient able to move all 4 extremities. Extremities: No edema. Skin: No rash or ecchymoses. Objective Labs 10/29/24 05:25 10/29/24 16:58 Labs: Laboratory Results - last 24 hr 10/29/24 05:25 WBC 9.5 RBC 4.72 Hgb 13.4 Hct 41.4 MCV 88 MCH 28.4 MCHC 32.4 RDW Std Deviation 47.1 H Plt Count 250 Neut % (Auto) 63 Lymph % (Auto) 25 [place] % (Auto) 7 Eos % (Auto) 4 Baso % (Auto) 0 Neut # (Auto) 6.0 Lymph # (Auto) 2.4 [place] # (Auto) 0.7 Eos # (Auto) 0.3 Baso # (Auto) 0.0 Immature Gran # (Auto) 0.03 H Absolute Nucleated RBC 0.00 Immature Gran % 0 Nucleated RBC % 0 Sodium 142 Potassium 4.5 D Chloride 108 H Carbon Dioxide 25.8 Anion Gap 8 BUN 19 Creatinine 1.5 H Estim Creat Clear Calc 50.7 L eGFR 42 L BUN/Creatinine Ratio 13 Glucose 89 Calculated Osmolality 284 Calcium 9.1 Corrected Calcium 9.1 Phosphorus 4.5 Magnesium 2.5 Total Bilirubin 0.4 AST 16 ALT 13 Alkaline Phosphatase 88 Total Protein 6.5 Albumin 4.2 Globulin 2.3 Albumin/Globulin Ratio 1.8 Quality Measures Quality Measures none Assessment & Plan Assessment Current Active Medications: Generic Name Dose Route Start Last Admin Trade Name Freq PRN Reason Stop Dose Admin Acetaminophen 650 mg 10/27/24 21:14 Acetaminophen 325 Mg Tablet PO 11/26/24 21:13 Q6H PRN Pain 1-3 and/or Fever >100.1 Apixaban 5 mg 10/29/24 09:00 Apixaban 2.5 Mg Tablet PO 11/28/24 08:59 BID ETHAN Gabapentin 100 mg 10/28/24 21:00 10/29/24 08:46 Gabapentin 100 Mg Capsule PO 11/27/24 20:59 100 mg BID ETHAN Administration Metoprolol Succinate 100 mg 10/29/24 09:00 Metoprolol Succinate Xl 25 Mg Tabcr PO 11/28/24 08:59 QDAY ETHAN Ondansetron HCl 4 mg 10/27/24 21:14 Ondansetron Inj 2 Mg/Ml Inj 2 Ml IVP 11/26/24 21:13 Q6H PRN NAUSEA OR VOMITING Protocol Sennosides 1 tab 10/27/24 21:14 Senna Tablet PO 11/26/24 21:13 QDAY PRN constipation Protocol Plan Patient is a 54-year-old female with history of right hip replacement, chronic back pain and neuropathy presented to the ED on 10/27 with episode of shortness of breath and palpitations, admitted for newly diagnosed atrial flutter/A-fib with RVR s/p TTE and successful cardioversion. #Atrial flutter with RVR - resolved #s/p cardioversion Patient presented with singular episode of palpitations associate with shortness of breath, denies having any cardiac history in the past however patient's father with coronary artery disease with stents and CABG. In ED, heart rate fluctuates from low of 98 to a high of 140, eventually stabilized to 110s on diltiazem drip. EKG did show atrial flutter with rapid ventricular response and there was noted ST minor less than 1 mm elevation in inferior leads without any reciprocal changes. Troponin within normal limits and the patient denies having any chest pain. TTE 10/28 showed estimated EF of 55-60% with trace TR but otherwise unremarkable. Patient remained in aflutter despite diltiazem. MONISHA 10/28 showed new EF of >70%, no PFO or thrombus in left atrial appendage. Successfully cardioverted immediately after. Diltiazem drip was kept overnight, was to be discontinued 2 hours post procedure. Pressures were soft this morning but improved after 1L NS bolus. Plan: -NS bolus today -cardiology consulted, appreciate recommendations -metoprolol succinate 100 mg QD if BP >120/80 -cardiac diet #ATN Likely secondary to low blood pressures causing hypoperfusion of kidneys. Patient was also NPO for majority of yesterday. No history of CKD. -will likely improve with bolus -monitor creatinine #Hx of Right hip replacement #Chronic back pain #Neuropathy -continue home dose gabapentin -hold home dose celebrex per cardiology recommendations Health Maintenance: Lines: PIV Diet: Cardiac Bowel: Senna PRN GI prophylaxis: Not needed DVT prophylaxis: Heparin subcutaneous Dispo: resolving WAI, then home Code: Full Patient plan of care was discussed with the senior resident, Dr. Velasco, and attending physician, Dr. Lurdes Mcfarlane, PGY-1
[2024-10-29] MEDS: APIXABAN 2.5 MG TABLET 5 MG PO (10:15)
--- NOTE | 2024-10-29 11:22 | PC.SS ---
Initial assessment: patient is a 54 year old female admitted for arrhythmia. Patient is alert and oriented to self, place and situation. Patient confirmed home address: [address] [place] [address] in [place], [place]. Patient informed she lives with spouse, Andrew at home. Patient identified Andrew as her emergency contact for medical decision making purposes. Patient informs she is independent with ADL's and denies any home DME use. Patient reports the discharge plan is to return home and spouse is able to transport home. No needs identified. Community resource handout provided to the patient. No further questions at this time. D/c plan: Home Next of kin: spouseAndrew
[2024-10-29] MEDS: SODIUM CHLORIDE 0.9% 1000 ML 1,000 ML 999 ML IV (12:27)
--- NOTE | 2024-10-29 14:53 | PC.SS ---
Rounding note: patient is pending blood pressure improvement and continued treatment of WAI. D/c plan is to return home.
[2024-10-29] MEDS: METOPROLOL SUCCINATE XL 25 MG TABCR 50 MG PO (15:09)
--- NOTE | 2024-10-29 16:34 | ESPR_ITS ---
Documentation for date of: 10/29/24 Subjective Subjective Interval history: The patient was seen and examined at the bedside this morning. She reported doing much better. She denied any chest pain, SOB, headache, dizziness, orthopnea/PND, fever or chills. She denied any palpitations. Her vitals were significant for HR ranging from 50s to 60s, and in sinus rhythm, and diltiazem drip was discontinued. Her blood pressure was soft, and we held her metoprolol succinate 100 Mg daily this morning. CBC was stable, CMP revealed BUN 19 and creatinine 1.5 suggestive of WAI versus ATN. EKG done today revealed sinus rhythm With heart rate of 60, and QTc 432. Later, this afternoon, her blood pressure was 130/80, heart rate in 70s, and was given metoprolol succinate 50 Mg x 1. We will also consider restarting the patient on metoprolol XL 50 Mg daily, and follow-up with me as an outpatient within 1 week of discharge. Exam Vital Signs Temp Pulse Resp BP Pulse Ox O2 Del Method 98.0 F 85 18 111/76 97 Room Air 10/29/24 12:00 10/29/24 15:10/29/24 12:00 10/29/24 15:10/29/24 12:00 10/29/24 12:00 Narrative Exam General: No acute distress, Alert and Oriented x 3 HEENT: Moist mucous membranes, oropharynx clear Neck: Supple, No masses, No JVD CVS: Normal S1 and S2, No murmurs, rubs or gallops Lungs: Clear to auscultation with no accessory use, no wheeze no rhonchi Abd: Soft, NT/ND, +BS, no organomegaly Ext: No edema, warm and well perfused Skin: No rash Psych: Appropriate mood and affect Objective Labs 10/29/24 05:25 10/29/24 16:58 Labs: Laboratory Results - last 24 hr 10/29/24 05:25 WBC 9.5 RBC 4.72 Hgb 13.4 Hct 41.4 MCV 88 MCH 28.4 MCHC 32.4 RDW Std Deviation 47.1 H Plt Count 250 Neut % (Auto) 63 Lymph % (Auto) 25 [place] % (Auto) 7 Eos % (Auto) 4 Baso % (Auto) 0 Neut # (Auto) 6.0 Lymph # (Auto) 2.4 [place] # (Auto) 0.7 Eos # (Auto) 0.3 Baso # (Auto) 0.0 Immature Gran # (Auto) 0.03 H Absolute Nucleated RBC 0.00 Immature Gran % 0 Nucleated RBC % 0 Sodium 142 Potassium 4.5 D Chloride 108 H Carbon Dioxide 25.8 Anion Gap 8 BUN 19 Creatinine 1.5 H Estim Creat Clear Calc 50.7 L eGFR 42 L BUN/Creatinine Ratio 13 Glucose 89 Calculated Osmolality 284 Calcium 9.1 Corrected Calcium 9.1 Phosphorus 4.5 Magnesium 2.5 Total Bilirubin 0.4 AST 16 ALT 13 Alkaline Phosphatase 88 Total Protein 6.5 Albumin 4.2 Globulin 2.3 Albumin/Globulin Ratio 1.8 Quality Measures Quality Measures none Assessment & Plan Assessment Current Active Medications: Generic Name Dose Route Start Last Admin Trade Name Freq PRN Reason Stop Dose Admin Acetaminophen 650 mg 10/27/24 21:14 Acetaminophen 325 Mg Tablet PO 11/26/24 21:13 Q6H PRN Pain 1-3 and/or Fever >100.1 Apixaban 5 mg 10/29/24 09:00 10/29/24 10:15 Apixaban 2.5 Mg Tablet PO 11/28/24 08:59 5 mg BID ETHAN Administration Gabapentin 100 mg 10/28/24 21:00 10/29/24 08:46 Gabapentin 100 Mg Capsule PO 11/27/24 20:59 100 mg BID ETHAN Administration Metoprolol Succinate 50 mg 10/30/24 09:00 Metoprolol Succinate Xl 25 Mg Tabcr PO 11/29/24 08:59 QDAY ETHAN Ondansetron HCl 4 mg 10/27/24 21:14 Ondansetron Inj 2 Mg/Ml Inj 2 Ml IVP 11/26/24 21:13 Q6H PRN NAUSEA OR VOMITING Protocol Sennosides 1 tab 10/27/24 21:14 Senna Tablet PO 11/26/24 21:13 QDAY PRN constipation Protocol Plan The patient is a 54-year-old female with significant past medical history of chronic back pain, neuropathy and right hip replacement presented to ED with chief complaint of SOB and palpitation and was found to have atrial flutter with 2 is to 1 conduction. #A flutter with RVR The patient presented with SOB and palpitation and EKG revealed atrial flutter with 2:1 conduction. Etiology currently unknown, no previous cardiac history 10/28/2024: MONISHA done was negative for any thrombus in Left atrium or Left atrial appendage, and was negative for any thrombus. - Patient underwent successful cardioversion with 75 J shock x1 - Metoprolol succinate 100 Mg p.o. x 1 Given, and started on metoprolol succinate 100 Mg p.o. daily - Continue on diltiazem drip until 2-hour after metoprolol succinate 100 Mg p.o. x 1 is given. 10/29/2024: Her vitals were significant for HR ranging from 50s to 60s, and in sinus rhythm, and diltiazem drip was discontinued. Her blood pressure was soft, and we held her metoprolol succinate 100 Mg daily this morning. CBC was stable, CMP revealed BUN 19 and creatinine 1.5 suggestive of WAI versus ATN. EKG done today revealed sinus rhythm With heart rate of 60, and QTc 432. Later, this afternoon, her blood pressure was 130/80, heart rate in 70s, and was given metoprolol succinate 50 Mg x 1. We will also consider restarting the patient on metoprolol XL 50 Mg daily, and follow-up with me as an outpatient within 1 week of discharge. - Telemetry monitoring - Maintain magnesium and potassium greater than 2 and 4 respectively at all times - Monitor closely # Peripheral neuropathy # Chronic back pain - Defer the management to primary hospitalist team. Thank you for the opportunity to participate cardiology team in this patient's care. The patient's management plan was discussed with my attending physician MD Ed Monsivais MD, PGY3 Attending Provider Attestation/Addendum I have personally seen and examined the patient separately on the above date of service and discussed the plan of care with the resident. I reviewed the resident Dr. Ed Alvarado consultation progress note and agree with the resident findings and plan in the note above and have also edited the documentation to reflect my findings and plan. Garrett Gonsalez M.D. Interventional Cardiology
--- NOTE | 2024-10-29 16:41 | EVENTNT_ITS ---
Documentation for date of: 10/29/24 Event Note Event Note: Patient was being monitored for rising creatinine, likely due to acute kidney injury from low blood pressures overnight. Risks & benefits of leaving before medical clearance/discharge were explained to patient, including risk of . Her was present at bedside. Despite multiple attempts to school counselor her, she has decided to sign out against medical advice (AMA). Patient was alert and oriented x4 with ability to demonstrate understanding of the above and signed the AMA form. The patient had the opportunity to ask questions about their condition which were answered to their satisfaction; the patient is aware that they may return for further care at any time as needed. Given patient is still recovering from significant cardiac stress, 10 day supply of Eliquis and Metoprolol XL 100 mg was sent to pharmacy. Explained to patient that she must follow up with PCP within 2-3 days to check renal function. Also emphasized the importance of following up with technology director Dr. Gonsalez and commander internal affairs Dr. Waldron within 1 week.
--- NOTE | 2024-10-29 17:22 | PC.NURSE ---
PT was educated on importance of completing treatment and having a discharge plan provides the best outcome for plan of care by MD Velasco and RN Inez and Charline CLARKE at bedside. PT verbalizes her reasoning for going home and is sure of leaving against medical advice. IVS removed and verbal instructions given to follow up with PCP DONAVAN. PT verbalized understanding.
[2024-10-29 17:30] LABS: Albumin, Serum 4.0 gm/dL (3.5-5.0); Anion Gap 8 (7-16); BUN/Creatinine Ratio 15 Ratio (12-20); Blood Urea Nitrogen 20 mg/dL (9-23); Calcium 8.7 mg/dL (8.3-10.6); Calcium (Corrected) 8.7 mg/dL (8.5-10.1); Carbon Dioxide 26.5 mMol/L (20.0-31.0); Chloride 109 mMol/L (98-107); Creatinine (Component) 1.3 mg/dL (0.6-1.3); Estimated Creatinine Clearance 58.3 mL/min (>60); Glucose 100 mg/dL (74-106); Osmolality,Calculated 287 (275-295); Phosphorous 2.5 mg/dL (2.4-5.1); Potassium 4.5 mMol/L (3.4-5.1); Sodium 143 mMol/L (136-145); eGFR 49 See Note
== END 2024-10-29 17:10 | disposition left against medical advice (07) | DRG 201 ==
LOC: SERX 19:45 → SERHOLD 21:58 → S2SX 10-28 07:49 → S3SX 10-28 15:34 → S2SX 10-28 15:46
PROVIDERS: Student in an Organized Health Care Education/Training Program; Admitting Provider Internal Medicine; Emergency Provider Emergency Medicine; PCP Physician Assistant; Visit Provider Internal Medicine
DX: I48.92 Unspecified atrial flutter (principal); I10 Essential (primary) hypertension; Z96.641 Presence of right artificial hip joint; M54.9 Dorsalgia, unspecified; G89.29 Other chronic pain; G62.9 Polyneuropathy, unspecified; N17.0 Acute kidney failure with tubular necrosis; I48.91 Unspecified atrial fibrillation; I44.1 Atrioventricular block, second degree; I45.89 Other specified conduction disorders; Z53.29 Procedure and treatment not carried out because of patient's decision for other reasons; Z79.01 Long term (current) use of anticoagulants; Z88.5 Allergy status to narcotic agent; Z88.2 Allergy status to sulfonamides; Z88.8 Allergy status to other drugs, medicaments and biological substances
CPT/HCPCS: 36415; 71045; 80053; 80069; 80307; 81001; 83735; 84100; 84443; 84703; 85025; 85610; 93005; 93225; 93306; 93312; 96361; 96365; 96366; 99285; J1644; J2250; J3010; J3475; J3490; J7030; J7120; J7999; A9270

== ENCOUNTER 2024-12-27 11:30 | Emergency (ER) | payer MEDICAID, SELFPAY ==
[2024-12-27 11:50] VITALS: BP 112/76; PULSE 91; RESP 18; TEMP 36.7; O2SAT 98
--- NOTE | 2024-12-27 11:55 | EKG_ITS ---
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
--- NOTE | 2024-12-27 11:55 | PD.EDADULT ---
ED General RME/HPI General Chief complaint: Arrhythmia/Palpitations Stated complaint: PULSE STAYING ABOVE 100 (108 VIA PULSE OX) Time Seen by Provider: 12/27/24 11:51 Arrival date/time: 12/27/24 11:30 CC: Occasional racing heart HPI ongoing for the past several days, and came in to be checked out . Patient has a history of this is well-known she is seen by Dr. Catrina Javed cardiology for the same complaint is on the 100 mg metoprolol XR for the same complaint. Patient denies chest pain shortness of breath difficulty breathing headache nausea vomiting lightheadedness, dizziness when sitting up or standing up. Patient denies any syncope or near syncope. Related Data Home Medications ?Medication ?Instructions ?Recorded ?Confirmed celecoxib 200 mg capsule 200 mg PO Q12H 10/28/24 10/28/24 gabapentin 100 mg capsule 100 mg PO Q12H 10/28/24 10/28/24 tirzepatide (weight loss) 2.5 2.5 mg subcut .COMPLEX 10/28/24 10/28/24 mg/0.5 mL subcutaneous pen injector ([employer]) Allergies Allergy/AdvReac Type Severity Reaction Status Date / Time codeine Allergy Severe Palpitation Verified 12/27/24 11:32 s hydrocortisone Allergy Severe Headache Verified 12/27/24 11:32 prednisone Allergy Severe Swelling Verified 12/27/24 11:32 of Lip/Tongue/Throat sulfamethoxazole Allergy Severe Rash Verified 12/27/24 11:32 trimethoprim Allergy Severe Rash Verified 12/27/24 11:32 Review of Systems Review of Systems Narrative Review of Systems: GEN: No fever, no chills, no weight loss EYES: No discharge, no visual changes, no pain HEENT: No ear pain, no congestion, no sore throat PULM: No shortness of breath, no cough, no congestion CV: No chest pain, no dyspnea on exertion, no palpitations GI: No nausea, no vomiting, no diarrhea, no pain, no constipation : No frequency, no urgency, no dysuria MUSC/SKEL: No joint pain, no back pain SKIN: No rash PSYCH: No hallucinations, no depression HEME/LYMPH: No easy bleeding or bruising tendencies NEURO: No weakness, no headache Past Medical History Past Medical History NEUROLOGIC: Negative Neurological Disorders or Seizures CARDIAC: Positive Hypertension; Negative Cardiac Disorders, Hypercholesterolemia or Congestive Heart Failure RESPIRATORY: Negative Chronic Obstructive Pulmonary Disease (COPD), Asthma, Smoking or Smoking Exposure GASTROINTESTINAL: Negative Gastrointestinal Disorders GENITOURINARY: Positive Genitourinary Disorders and Kidney Stones; Negative Renal Disease REPRODUCTIVE: Positive Previous Pregnancies; Negative Breast Cancer MUSCULOSKELETAL: Negative Musculoskeletal Disorders ENDOCRINE: Negative Endocrine Disorders, Diabetes Mellitus Type 1 or Diabetes Mellitus Type 2 HEMATOLOGIC: Negative Blood Disorders or Sickle Cell Disease PSYCHO/SOCIAL: Positive Depression and Anxiety OTHER HISTORY: Positive Chicken Pox; Negative Autoimmune Disease, Blood Transfusions, Blood Transfusion Reaction, Anesthesia Reactions, Organ Transplant or Breast Cancer Family History FAMILY HISTORY: Positive Family Cardiac Disorders, Family Cancer and Family Surgery; Negative Family Anesthesia Reaction Surgical History SURGICAL: Negative Endocrine Surgery, Ear Surgery, Abdominal Surgery, Nephrectomy, Joint Replacement, Neurologic Surgery, Brain Shunt, Mastectomy or Organ Transplant Social History SMOKING STATUS: Never smoker ED Exam Narrative Physical exam: [General: Not in any acute distress Head normocephalic HEENT: Within acceptable limits Neck is supple nontender Chest equal chest rise nontender to palpation Respiratory: Clear to auscultation no wheezes crackles or rubs CV: Rate rhythm is regular no murmurs rubs or clicks. Note: Resting heart rate in the 90s, once the patient stands up and moves around(marching in place), heart rate accelerates to the 120s and 130s Abdomen is soft nontender no masses positive bowel sounds all 4 quadrants Back: No CVA tenderness no spinous process tenderness from cervical spine thoracic and lumbar spine Skin: Intact no petechiae rash induration ulceration or crepitus Extremities: Moving all extremity against resistance cap refill less than 2 seconds neurosensory intact Neuro: Awake alert oriented x3 Glascow coma 15 no focal deficits] Course Course Course Narrative: Review the medical record show the patient had a MONISHA with cardioversion from a flutter to sinus rhythm with a single shock in October 2024. Quality Measures none Orders Category Date Time Status EKG (ED ONLY) *Do not use* NOW Care 12/27/24 11:55 Completed EKG (ED Only) Stat Exams 12/27/24 11:55 Draft Vital Signs Vital signs: Vital Signs Temperature 98.0 F 12/27/24 11:50 Pulse Rate 91 12/27/24 11:50 Respiratory Rate 18 12/27/24 11:50 Blood Pressure 112/76 12/27/24 11:50 Pulse Oximetry (%) 98 12/27/24 11:50 Oxygen Delivery Method Room Air 12/27/24 11:50 Discharge Plan Plan Patient Disposition: HOME (Self Care) Patient condition on transfer: Stable Prescriptions/Referrals Prescriptions/Med Rec: No Action gabapentin 100 mg capsule 100 mg PO Q12H Zepbound 2.5 mg/0.5 mL pen injector 2.5 mg SUBCUT .COMPLEX Patient Comments: INJECT 0.5 ML SUBCUTANEOUSLY ONE TIME PER WEEK Rx Instructions: 2.5 mg subcutaneously every Saturday; celecoxib 200 mg capsule 200 mg PO Q12H Problem List Clinical Impression: Tachycardia Patient/Caregiver Discharge Instructions Education Materials: Understanding Tachycardia Print Language: [place] Island[place] Stand Alone Forms: [place] Award Info., Work/School Release, Patient Portal Info Letter PA/CLAIMS ATTORNEY Supervising Physician PA/CLAIMS ATTORNEY Supervising Physician: Beau Singleton ENP [facility] Clinical Information Provided by patient Medical Records Reviewed [facility] Meds/Rx Considered, not Ordered None Labs/Rad/Tests considered, not Ordered None Chronic Illness/Social Conditions Add or document further as needed: A flutter with MONISHA conversion in October 2024 EKG EKG Interpretation narrative: EKG performed at 1157 shows a ventricular to 101 GA interval 176 QRS of 81 QTc of 376 sinus tachycardia.
== END 2024-12-27 12:31 | disposition home or self-care (01) ==
LOC: SERX 12:28
PROVIDERS: Emergency Provider Family Medicine; PCP Family Medicine
DX: R00.0 Tachycardia, unspecified (principal); I10 Essential (primary) hypertension
CPT/HCPCS: 93005; 99283

== ENCOUNTER 2025-01-28 10:47 | Outpatient (AMB) | payer MEDICAID, SELFPAY ==
--- NOTE | 2025-01-28 11:05 | PD.ORTHCLVIS ---
Vital signs 01/28/25 11:06 Height 1.7 m Height Method Measured Weight 85.956 kg Weight Measurement Method Standing Scale BMI 29.7 BP 109/75 Blood Pressure Source Automatic Cuff Blood Pressure Location Left Upper Arm Position Sitting Respiration 19 Pulse 75 Pulse Source Monitor Temp 98.1 F Temp Source Temporal Artery Scan Pulse Oximetry (%) 96 Oxygen Delivery Method Room Air Med/Allergies Allergies & Medications Allergies codeine Allergy (Severe, Verified 01/28/25 11:07) Palpitations hydrocortisone Allergy (Severe, Verified 01/28/25 11:07) Headache prednisone Allergy (Severe, Verified 01/28/25 11:07) Swelling of Lip/Tongue/Throat sulfamethoxazole Allergy (Severe, Verified 01/28/25 11:07) Rash trimethoprim Allergy (Severe, Verified 01/28/25 11:07) Rash Medication Reconciliation celecoxib 200 mg capsule 200 mg PO Q12H 10/28/24 [History Confirmed 01/28/25] gabapentin 100 mg capsule 100 mg PO Q12H 10/28/24 [History Confirmed 01/28/25] tirzepatide (weight loss) 2.5 mg/0.5 mL subcutaneous pen injector (Zepbound) 2.5 mg subcut .COMPLEX 10/28/24 [History Confirmed 01/28/25] Exam Exam Patient is in no acute distress and is cooperative with the examination today. Patient has a normal mood and affect. Breathing is nonlabored. In no respiratory distress. Bilateral extremities were evaluated and demonstrates sensation intact to light touch. Palpable pedal pulses are present. No significant edema is present. Right hip demonstrates no pain with logroll. Incisions clean dry intact. Left hip is tender to palpation. There is pain with logroll as well. Internal rotation to 20 degrees and is pain limited X-rays of the right hip demonstrate a right total hip replacement in a lying position. The left hip has moderate arthritis And joint space narrowing. Assessment and Plan Problem List (1) Status post right hip replacement: Status: Acute Plan: Patient is a pleasant 53-year-old female with Moderate left hip arthritis. She has significant back pain that radiates down her toes as well. She did receive significant relief with a cortisone injection. The pain has reoccurred. We talked about total hip replacement in great detail today. She is currently on the fence whether she wants a total hip replacement or not. We will continue with NSAIDs for now. She will continue to try to lose weight. We will get new hip x-rays as it has been over 1 year since the last ones were done. She is on the fence whether she wants a left hip replacement (2) Arthritis of left hip: Status: Acute Office Procedures GNS Level of Care Nursing/Assessment Patient Status: Established Patient Nursing Assessment/Reassesment: Medication Reconciliation, Update PMH in EMR and Vital Signs Coordination of Care: Complex Care and Chronic Disease 1-5, Education Complex Pt/Fam, Consent,records obtained, informed consent, Results/Orders obtained and Staff clarify orders Established Patient Charge Established Patient Point Assignment: 95 Established Patient Point Charge: EP Level 3 (80-115) MA Intake Visit Data Collection New Patient or Established: Established Patient (seen at [facility] within 3 years) Reason for Visit:: LEFT HIP PAIN FOLLOW UP Seen by Clinical Staff ONLY (RN/MA): No PCP or OBGYN visit in last 3 months: Yes Hx Now: No Do You Feel Safe at Home: Yes Authorities Contacted: N/A Questionairres Past Medical History Past Medical History Have you ever been diagnosed with any of the following: Neurological Problems Seizures: No Cardiology Problems Hypercholesterolemia: No Congestive Heart Failure: No Hypertension: Yes Respiratory Problems Chronic Obstructive Pulmonary Disease (COPD): No Asthma: No Smoking: No Smoking Exposure: No Genital/Urinary Problems Renal Disease: No Kidney Stones: Yes Reproductive Problems Breast Cancer: No Previous Pregnancies: Yes Endocrine Problems Diabetes Mellitus Type 1: No Diabetes Mellitus Type 2: No Blood Problems Sickle Cell Disease: No Psychologic Problems Depression: Yes Anxiety: Yes Other Problems Blood Transfusions: No Blood Transfusion Reaction: No Anesthesia Reactions: No Organ Transplant: No Chicken Pox: Yes Subjective Visit Visit for: follow up visit and hip Immunization / Flu Flu Vaccine in the Last 12 Months: No Flu Vaccine Exclusion Criteria: No Exclusion Criteria History of Present Illness Chief complaint: left hip pain Aakash is a pleasant 53-year-old female with left hip arthritis. She had a right hip replaced. She had a hip injection and reports that it did help for 3 weeks. She is currently on the fence whether she wants a hip replacement at this point. She takes Celebrex. The last hip injection did not last for a long period of time. The left hip pain has increased within the last 6 weeks. We will get new x-rays as the last x-rays have been [id number] at this point Personal History Red flag PMH: none BMI Counceling provided: Yes Pain Pain level (0-10): 3 Pain duration: COMES AND GOES Pain location: outside (lateral) Pain quality: dull and aching Pain timing: increases with activity Associated signs & symptoms: none Ambulatory data Ambulatory device: none Treatments Improvement with previous injections: No Improvement with PT: No Improvement with NSAIDS: no Review of Systems Review of Systems: All systems negative unless otherwise noted in HPI.
[2025-01-28 11:06] VITALS: BP 109/75; PULSE 75; RESP 19; TEMP 36.7; O2SAT 96; BMI 29.7
--- NOTE | 2025-01-28 11:20 | XR_ITS ---
Examination:Left hip AP, lateral, AP pelvis 3 views Technique: Hip AP lateral, AP pelvis, 3 views Exam date and time:January 28, 2025, 1135 hours INDICATIONS: Left hip pain months FINDINGS: Severe narrowing left hip joint Subtle sclerosis involving the femoral head No hip fracture Hip hemiarthroplasty with satisfactory alignment IMPRESSION: Severe narrowing left hip joint.
== END 2025-01-28 11:24 | disposition home or self-care (01) ==
LOC: HODSRG 10:47
PROVIDERS: PCP Physician Assistant; Referring Provider Physician Assistant; Supervising Provider Orthopaedic Surgery Adult Reconstructive Orthopaedic Surgery; Visit Provider Orthopaedic Surgery Adult Reconstructive Orthopaedic Surgery
DX: M16.12 Unilateral primary osteoarthritis, left hip (principal); Z96.641 Presence of right artificial hip joint; M25.552 Pain in left hip; M54.9 Dorsalgia, unspecified; I10 Essential (primary) hypertension
CPT/HCPCS: 73502; 99213; G0463

== ENCOUNTER 2025-03-04 10:54 | Outpatient (AMB) | payer MEDICAID, SELFPAY ==
--- NOTE | 2025-03-04 11:20 | PD.ORTHCLVIS ---
Vital signs 03/04/25 11:21 Height 1.7 m Height Method Stated Weight 84.878 kg Weight Measurement Method Standing Scale BMI 29.3 BP 123/82 Blood Pressure Source Automatic Cuff Blood Pressure Location Left Upper Arm Position Sitting Respiration 18 Pulse 66 Pulse Source Monitor Temp 97.3 F Temp Source Temporal Artery Scan Pulse Oximetry (%) 98 Oxygen Delivery Method Room Air Med/Allergies Allergies & Medications Allergies codeine Allergy (Severe, Verified 03/04/25 11:24) Palpitations hydrocortisone Allergy (Severe, Verified 03/04/25 11:24) Headache prednisone Allergy (Severe, Verified 03/04/25 11:24) Swelling of Lip/Tongue/Throat sulfamethoxazole Allergy (Severe, Verified 03/04/25 11:24) Rash trimethoprim Allergy (Severe, Verified 03/04/25 11:24) Rash Medication Reconciliation celecoxib 200 mg capsule 200 mg PO Q12H 10/28/24 [History Confirmed 03/04/25] gabapentin 100 mg capsule 100 mg PO Q12H 10/28/24 [History Confirmed 03/04/25] tirzepatide (weight loss) 2.5 mg/0.5 mL subcutaneous pen injector (Zepbound) 2.5 mg subcut .COMPLEX 10/28/24 [History Confirmed 03/04/25] Exam Exam Patient is in no acute distress and is cooperative with the examination today. Patient has a normal mood and affect. Breathing is nonlabored. In no respiratory distress. Bilateral extremities were evaluated and demonstrates sensation intact to light touch. Palpable pedal pulses are present. No significant edema is present. Right hip demonstrates no pain with logroll. Incisions clean dry intact. Left hip is tender to palpation. There is pain with logroll as well. Internal rotation to 20 degrees and is pain limited X-rays of the right hip demonstrate a right total hip replacement in a lying position. The left hip has moderate arthritis And joint space narrowing. Assessment and Plan Problem List (1) Status post right hip replacement: Status: Acute Plan: Patient is a pleasant 53-year-old female with Moderate left hip arthritis. She has significant back pain that radiates down her toes as well. She did receive significant relief with a cortisone injection. The pain has reoccurred. We talked about total hip replacement in great detail today. She is currently on the fence whether she wants a total hip replacement or not. We will continue with NSAIDs for now. She will continue to try to lose weight. She would like to try another cortisone injection today (2) Arthritis of left hip: Status: Acute Office Procedures GNS Level of Care Nursing/Assessment Patient Status: Established Patient Nursing Assessment/Reassesment: Medication Reconciliation, Update PMH in EMR and Vital Signs Coordination of Care: Complex Care and Chronic Disease 1-5, Education Complex Pt/Fam, Consent,records obtained, informed consent, Results/Orders obtained and Staff clarify orders Established Patient Charge Established Patient Point Assignment: 95 Established Patient Point Charge: EP Level 3 (80-115) MA Intake Visit Data Collection New Patient or Established: Established Patient (seen at [facility] within 3 years) Reason for Visit:: LEFT HIP XRAY Seen by Clinical Staff ONLY (RN/MA): No PCP or OBGYN visit in last 3 months: Yes Hx Now: No Do You Feel Safe at Home: Yes Authorities Contacted: N/A Questionairres Past Medical History Past Medical History Have you ever been diagnosed with any of the following: Neurological Problems Seizures: No Cardiology Problems Hypercholesterolemia: No Congestive Heart Failure: No Hypertension: Yes Respiratory Problems Chronic Obstructive Pulmonary Disease (COPD): No Asthma: No Smoking: No Smoking Exposure: No Genital/Urinary Problems Renal Disease: No Kidney Stones: Yes Reproductive Problems Breast Cancer: No Previous Pregnancies: Yes Endocrine Problems Diabetes Mellitus Type 1: No Diabetes Mellitus Type 2: No Blood Problems Sickle Cell Disease: No Psychologic Problems Depression: Yes Anxiety: Yes Other Problems Blood Transfusions: No Blood Transfusion Reaction: No Anesthesia Reactions: No Organ Transplant: No Chicken Pox: Yes Subjective Visit Visit for: follow up visit and hip Immunization / Flu Flu Vaccine in the Last 12 Months: No Flu Vaccine Exclusion Criteria: No Exclusion Criteria History of Present Illness Chief complaint: left hip pain Aakash is a pleasant 53-year-old female with left hip arthritis. She had a right hip replaced. She had a hip injection and reports that it did help for 3 weeks. She is currently on the fence whether she wants a hip replacement at this point. She takes Celebrex. The last hip injection did not last for a long period of time. she is still on the fence that she wants surgery. She would like a repeat injection today Personal History Red flag PMH: none BMI Counceling provided: Yes Pain Pain level (0-10): 3 Pain duration: COMES AND GOES Pain location: outside (lateral) Pain quality: dull and aching Pain timing: increases with activity Associated signs & symptoms: none Ambulatory data Ambulatory device: none Treatments Improvement with previous injections: No Improvement with PT: No Improvement with NSAIDS: no Review of Systems Review of Systems: All systems negative unless otherwise noted in HPI.
[2025-03-04 11:21] VITALS: BP 123/82; PULSE 66; RESP 18; TEMP 36.3; O2SAT 98; BMI 29.3
== END 2025-03-04 11:41 | disposition home or self-care (01) ==
LOC: HODSRG 10:54
PROVIDERS: PCP Family Medicine; Referring Provider Family Medicine; Supervising Provider Orthopaedic Surgery Adult Reconstructive Orthopaedic Surgery; Visit Provider Orthopaedic Surgery Adult Reconstructive Orthopaedic Surgery
DX: M25.552 Pain in left hip (principal); M16.12 Unilateral primary osteoarthritis, left hip; Z96.641 Presence of right artificial hip joint; M54.9 Dorsalgia, unspecified
CPT/HCPCS: 99213; G0463

== ENCOUNTER → 2025-03-17 | Outpatient (CLI) | payer MEDICAID, SELFPAY ==
--- NOTE | 2025-03-17 13:30 | XR_ITS ---
Examination: Steroid injection left hip joint with imaging guidance Fluoroscopy AP left hip single view. Exam date and time: March 17, 2025, 1316 hours INDICATIONS: Diagnosis primary left hip unilateral osteoarthritis, left hip pain months Informed consent provided. Technique: A timeout was completed verifying correct patient, procedure, site, positioning. The patient was placed in supine position appropriate for the steroid injection The patient's site was prepped and draped in sterile fashion 5 cc 1% lidocaine administered locally for anesthesia. Sterile drape applied, maximum barrier sterile technique. Utilizing fluoroscopic guidance, 23-gauge needle placed in the left hip joint 1 cc 1 cc Depo-Medrol introduced into the left hip joint The patient was in satisfactory and stable condition on completion of the procedure Attending radiologist was present for the entire procedure Estimated blood loss 0 cc. Impression: Successful steroid injection left hip joint with imaging guidance Fluoroscopy 0.1-minute radiation dose 1.15 mGy 1 spot fluoroscopic left hip:.
[2025-03-17] MEDS: BUPIVACAINE MPF 0.5% 30 ML VIAL EPID (13:40)
== END | disposition home or self-care (01) ==
LOC: SIRX 13:19
PROVIDERS: PCP Physician Assistant; Referring Provider Orthopaedic Surgery Adult Reconstructive Orthopaedic Surgery; Visit Provider Orthopaedic Surgery Adult Reconstructive Orthopaedic Surgery
DX: M16.12 Unilateral primary osteoarthritis, left hip (principal)
CPT/HCPCS: 20610; 77002; J1010; J3490

== ENCOUNTER 2025-04-08 09:19 | Outpatient (AMB) | payer MEDICAID, SELFPAY ==
--- NOTE | 2025-04-08 09:45 | ORTHONT_ITS ---
Vital signs 04/08/25 09:47 Height 1.7 m Height Method Stated Weight 81.845 kg Weight Measurement Method Standing Scale BMI 28.3 BP 101/71 Blood Pressure Source Automatic Cuff Blood Pressure Location Left Upper Arm Position Sitting Respiration 18 Pulse 79 Pulse Source Monitor Temp 97.7 F Temp Source Temporal Artery Scan Pulse Oximetry (%) 98 Oxygen Delivery Method Room Air Med/Allergies Allergies & Medications Allergies codeine Allergy (Severe, Verified 04/08/25 09:47) Palpitations hydrocortisone Allergy (Severe, Verified 04/08/25 09:47) Headache prednisone Allergy (Severe, Verified 04/08/25 09:47) Swelling of Lip/Tongue/Throat sulfamethoxazole Allergy (Severe, Verified 04/08/25 09:47) Rash trimethoprim Allergy (Severe, Verified 04/08/25 09:47) Rash Medication Reconciliation celecoxib 200 mg capsule 200 mg PO Q12H 10/28/24 [History Confirmed 04/08/25] gabapentin 100 mg capsule 100 mg PO Q12H 10/28/24 [History Confirmed 04/08/25] tirzepatide (weight loss) 2.5 mg/0.5 mL subcutaneous pen injector (Zepbound) 2.5 mg subcut .COMPLEX 10/28/24 [History Confirmed 04/08/25] Exam Exam Patient is in no acute distress and is cooperative with the examination today. Patient has a normal mood and affect. Breathing is nonlabored. In no respiratory distress. Bilateral extremities were evaluated and demonstrates sensation intact to light touch. Palpable pedal pulses are present. No significant edema is present. Right hip demonstrates no pain with logroll. Incisions clean dry intact. Left hip is tender to palpation. There is pain with logroll as well. Internal rotation to 20 degrees and is pain limited X-rays of the right hip demonstrate a right total hip replacement in a lying position. The left hip has severe arthritis arthritis And joint space narrowing. Assessment and Plan Problem List (1) Status post right hip replacement: Status: Acute (2) Arthritis of left hip: Status: Acute Plan: Patient is a pleasant 54-year-old female with severe left hip arthritis. She has significant back pain that radiates down her toes as well. She did receive significant relief with a cortisone injection. The pain has reoccurred. We talked about hip replacement in great detail today. She tried anti- inflammatories as well as injections and is trying to lose weight. She would like to proceed with total hip replacement. I would likely do this with a lateral approach The nature and purpose of the total hip replacement, alternative method(s) of treatment, the material risks involved, and the possibility of complications were fully explained to the patient. The patient does NOT have any of the following contraindications to KEO: - Active infection of the hip joint, OR - Active systemic bacteremia, OR - Active skin infection or open wound at surgical site, OR - Neuropathic arthritis, OR - Severe, rapidly progressive neurological disease, OR - Severe medical condition that makes risks of the surgery outweigh the potential benefit The patient was told the most common risks and complications associated with a total hip replacement include, but are not limited to: blood clots in the leg, fatal pulmonary embolism, dislocation of the prosthesis, intraoperative and postoperative fractures of the femur or acetabulum, infection, failure of the prosthesis or grafting materials, complications from anesthesia, reactions to blood transfusions, postoperative leg length inequality, instability of the hip replacement, nerve damage or injury, vascular injury, delayed wound healing, infection, other injury or even . In addition, there are risks associated with anesthesia given during this operation. Also, the patient was told that after undergoing a total hip replacement there may still be persistent pain or disability. The patient was informed that the success of this operation in part depends upon the mechanical devices which are going to be implanted and that these devices can fail or malfunction, and may need to be repaired or replaced and there are no guarantees as to the longevity of this device or its parts and that it or its parts could fail prematurely. The patient was also notified that during the course of surgery, there may be a need to use bone graft from donors, and that any bone graft used will be carefully screened for communicable diseases, including AIDS, hepatitis, [id number]-Creutzfeldt, or other diseases, but despite the screening procedures, there is a small chance that they could contract one of these diseases. Finally, the patient was asked to follow completely and fully with all advice and recommended treatments, and that recovery and ultimate outcome are affected by their compliance with recommended treatment. We discussed the risks, benefits and treatment alternatives, and the patient is interested in proceeding with surgery. We will try to set this up as expeditiously as possible. Office Procedures GNS Level of Care Nursing/Assessment Patient Status: Established Patient Nursing Assessment/Reassesment: Medication Reconciliation, Update PMH in EMR and Vital Signs Coordination of Care: Complex Care and Chronic Disease 1-5, Education Complex Pt/Fam, Consent,records obtained, informed consent, Results/Orders obtained and Staff clarify orders Established Patient Charge Established Patient Point Assignment: 95 Established Patient Point Charge: EP Level 3 (80-115) MA Intake Visit Data Collection New Patient or Established: Established Patient (seen at [facility] within 3 years) Reason for Visit:: LEFT HIP ASPIRATION/INJ FU Seen by Clinical Staff ONLY (RN/MA): No PCP or OBGYN visit in last 3 months: Yes Hx Now: No Do You Feel Safe at Home: Yes Authorities Contacted: N/A Questionairres Past Medical History Past Medical History Have you ever been diagnosed with any of the following: Neurological Problems Seizures: No Cardiology Problems Hypercholesterolemia: No Congestive Heart Failure: No Hypertension: Yes Respiratory Problems Chronic Obstructive Pulmonary Disease (COPD): No Asthma: No Smoking: No Smoking Exposure: No Genital/Urinary Problems Renal Disease: No Kidney Stones: Yes Reproductive Problems Breast Cancer: No Previous Pregnancies: Yes Endocrine Problems Diabetes Mellitus Type 1: No Diabetes Mellitus Type 2: No Blood Problems Sickle Cell Disease: No Psychologic Problems Depression: Yes Anxiety: Yes Other Problems Blood Transfusions: No Blood Transfusion Reaction: No Anesthesia Reactions: No Organ Transplant: No Chicken Pox: Yes Subjective Visit Visit for: follow up visit and hip Immunization / Flu Flu Vaccine in the Last 12 Months: No Flu Vaccine Exclusion Criteria: No Exclusion Criteria History of Present Illness Chief complaint: left hip pain Delaney is a pleasant 53-year-old female with left hip arthritis. She had a right hip replaced. She had a hip injection and reports that it did help for 3 weeks. She recently had an injection and is taking Celebrex. The injection is no longer working as long as it used to. She would just like to move forward with total hip replacement on the left Personal History Red flag PMH: none BMI Counceling provided: Yes Pain Pain level (0-10): 8 Pain duration: CONSTANT Pain location: inside (medial) and outside (lateral) Pain quality: dull, aching and burning Pain timing: increases with activity Associated signs & symptoms: none Ambulatory data Ambulatory device: none Treatments Number of previous injections: 1 Improvement with previous injections: No Improvement with PT: No Improvement with NSAIDS: no Review of Systems Review of Systems: All systems negative unless otherwise noted in HPI.
[2025-04-08 09:47] VITALS: BP 101/71; PULSE 79; RESP 18; TEMP 36.5; O2SAT 98; BMI 28.3
== END 2025-04-08 10:26 | disposition home or self-care (01) ==
LOC: HODSRG 09:19
PROVIDERS: PCP Physician Assistant; Referring Provider Physician Assistant; Supervising Provider Orthopaedic Surgery Adult Reconstructive Orthopaedic Surgery; Visit Provider Orthopaedic Surgery Adult Reconstructive Orthopaedic Surgery
DX: M16.12 Unilateral primary osteoarthritis, left hip (principal); Z96.641 Presence of right artificial hip joint; M54.9 Dorsalgia, unspecified; I10 Essential (primary) hypertension
CPT/HCPCS: 99213; G0463